=== PATIENT | male | born 1940 | race Two or more races ===

== ENCOUNTER 2024-07-30 19:33 | Inpatient (IN) | payer OTHER ==
[~2024-07-30] VITALS: Ht 182.9 cm; Wt 119.7 kg
--- NOTE | 2024-07-30 20:07 | ED.PDOC ---
History of Present Illness HPI Comments 83 y.o male presents to the ED for a chief complaint of generalized weakness associated with congestion and a cough that presented one day ago. Patient mentions he is unable to ambulate due to weakness, states his whole body gives out and needs assistance. Per family member, patient get weak about 1-2x a year when he is diagnosed with a viral illness. Usually, he requires EMS transport to the hospital. This time, they presented early to avoid EMS transfer. Patient denies any SOB, chest pain, fever, chills, dysuria. Denies any palliative provocative factors. Denies modifying factors. Denies radiation of symptoms. Denies pain. Time Seen by MD: 20:00 Reviewed Notes: Nurses Notes, Medications, Allergies Allergies: Coded Allergies: NO KNOWN ALLERGIES (Unverified , 07/30/24) Information Source: Patient, Relative Mode of Arrival: Wheelchair Severity: Moderate Timing: Days (1) Duration: Since onset Past Medical History PAST MEDICAL HISTORY: Denies Surgical History: Denies all surgeries Family History Family History: Reviewed,noncontributory to illness Social History Smoker: Non-Smoker Alcohol: Denies ETOH Use Drugs: Denies Drug Use Lives In: Home Constitutional: reports: weakness; denies: chills, diaphoresis, fatigue, fever, malaise, sweats, others EENTM: reports: nose congestion; denies: blurred vision, double vision, ear bleeding, ear discharge, ear drainage, ear pain, ear ringing, eye pain, eye redness, hearing loss, mouth pain, mouth swelling, nasal discharge, nose bleeding, nose pain, photophobia, tearing, throat pain, throat swelling, voice changes, others Respiratory: reports: cough; denies: hemoptysis, orthopnea, SOB at rest, shortness of breath, SOB with excertion, stridor, wheezing, others Cardiovascular: denies: chest pain, dizzy spells, diaphoresis, Dyspnea on exertion, edema, irregular heart beat, left arm pain, lightheadedness, palpitations, PND, syncope, others Gastrointestinal: denies: abdomen distended, abdominal pain, blood streaked bowels, constipated, diarrhea, dysphagia, difficulty swallowing, hematemesis, melena, nausea, poor appetite, poor fluid intake, rectal bleeding, rectal pain, vomiting, others Genitourinary: denies: burning, dysuria, flank pain, frequency, hematuria, incontinence, penile discharge, penile sore, pain, testicle pain, testicle swelling, urgency, others Neurological: denies: dizziness, fainting, headache, left sided numbness, left sided weakness, numbness, paresthesia, pre-existing deficit, right sided numbness, right sided weakness, seizure, speech problems, tingling, tremors, weakness, others Musculoskeletal: denies: back pain, gout, joint pain, joint swelling, muscle pain, muscle stiffness, neck pain, others Integumetry: denies: bruises, change in color, change in hair/nails, dryness, laceration, lesions, lumps, rash, wounds, others Allergic/Immunocompromised: denies: Difficulty Healing, Frequent Infections, Hives, Itching, others Hematologic/Lymphatic: denies: anemia, blood clots, easy bleeding, easy bruising, swollen glands, others Endocrine: denies: excessive hunger, excessive sweating, excessive thirst, excessive urination, flushing, intolerance to cold, intolerance to heat, unexplained weight gain, unexplained weight loss, others Psychiatric: denies: anxiety, bipolar disorder, depression, hopeless, panic disorder, schizophrenia, sleepless, suicidal, others All Other Systems: Reviewed and Negative Physical Exam General Appearance: No Apparent Distress, Normal HEENT: Normal ENT Inspection, Pharynx Normal, TMs Normal Neck: Full Range of Motion, Non-Tender, Normal, Normal Inspection Respiratory: Chest Non-Tender, Lungs Clear, No Accessory Muscle Use, No Respiratory Distress, Normal Breath Sounds Cardiovascular: No Edema, No JVD, No Murmur, No Gallop, Normal Peripheral Pulses, Regular Rate/Rhythm Breast Exam: Deferred Gastrointestinal: No Organomegaly, Non Tender, No Pulsatile Mass, Normal Bowel Sounds, Soft Genitalia: Deferred Pelvic: Deferred Rectal: Deferred Extremities: No calf tenderness, Normal capillary refill, Normal inspection, Normal range of motion, Non-tender, No pedal edema Musculoskeletal : Apperance: Normal Neurologic: Alert, surg tech II-XII nml as Tested, No Motor Deficits, Normal Affect, Normal Mood, No Sensory Deficits Cerebellar Function: Normal Reflexes: Normal Skin: Dry, Normal Color, Warm Lymphatic: No Adenopathy Was a procedure done? Was a procedure done?: No Differential Dx Considerations may include: Electrolyte imbalance, Dehydration, Viral Syndrome, URI, Bronchitis, Influenza X-Ray, Labs, Meds, VS Vital Signs Date Time Temp Pulse Resp B/P (MAP) Pulse Ox O2 Delivery O2 Flow Rate FiO2 07/30/24 20:09 91 07/30/24 19:33 99.9 95 16 154/85 (108) 94 Lab Test 07/30/24 20:17 Range/Units White Blood Count 12.2 H 4.4-10.8 10^3/uL Red Blood Count 5.18 4.5-5.90 10^6/uL Hemoglobin 16.5 13.5-17.5 g/dL Hematocrit 49.9 41.0-53.0 % Mean Corpuscular Volume 96.2 80.0-100.0 fL Mean Corpuscular Hemoglobin 31.9 28.0-32.0 pg Mean Corpuscular Hemoglobin Concent 33.1 32.0-36.0 g/dL Red Cell Distribution Width 13.5 11.8-14.3 % Platelet Count 130 L 140-450 10^3/uL Mean Platelet Volume 9.4 6.9-10.8 fL Neutrophils (%) (Auto) 91.5 H 37.0-80.0 % Lymphocytes (%) (Auto) 2.6 L 10.0-50.0 % Monocytes (%) (Auto) 5.5 0.0-12.0 % Eosinophils (%) (Auto) 0.1 0.0-7.0 % Basophils (%) (Auto) 0.3 0.0-2.0 % Neutrophils # (Auto) 11.1 H 1.6-8.6 10 ^3/uL Lymphocytes # (Auto) 0.3 L 0.4-5.4 10 ^3/uL Monocytes # (Auto) 0.7 0-1.3 10 ^3/uL Eosinophils # (Auto) 0 0-0.8 10 ^3/uL Basophils # (Auto) 0 0-0.2 10 ^3/uL Nucleated Red Blood Cells 0.0 % D-Dimer, Quantitative 0.39 0.0-0.49 mg/L FEU Sodium Level 141 136-145 mmol/L Potassium Level 4.2 3.5-5.1 mmol/L Chloride Level 110 H 98-107 mmol/L Carbon Dioxide Level 24 20-31 mmol/L Anion Gap 7 5-15 Blood Urea Nitrogen 25 H 9-23 mg/dL Creatinine 1.85 H 0.700-1.30 mg/dL Glomerular Filtration Rate Calc 35 >90 mL/min BUN/Creatinine Ratio 13.5 10.0-20.0 Serum Glucose 134 H 74-106 mg/dL Lactic Acid Level 1.5 0.4-2.0 mmol/L Calcium Level 10.1 8.7-10.4 mg/dL Total Bilirubin 1.0 0.2-1.0 mg/dL Aspartate Amino Transferase (AST) 17 13-40 U/L Alanine Aminotransferase (ALT) 18 7-40 U/L Alkaline Phosphatase 107 46-116 U/L B-Type Natriuretic Peptide 261.36 0-100 pg/mL Total Protein 6.8 5.7-8.2 g/dL Albumin 4.4 3.2-4.8 g/dL Time of 1ST Reevaluation: 20:06 Reevaluation 1ST: Unchanged Patient Education/Counseling: Diagnosis, Treatment, Prognosis Family Education/Counseling: Diagnosis, Treatment, Prognosis Departure 1 Departure Time of Disposition: 23:17 (Patient with worsening weakness. Labs are benign. We will admit patient for further workup) Impression: Primary Impression: Generalized weakness Disposition: ADMITTED INPATIENT Admit to: Med Surg Condition: Serious Critical Care Note Critical Care Time?: No Stability Stability form required: No I personally scribed for NELSON LEON MD ([email or web address]) on 07/30/24 at 20:07. Electronically submitted by Leeann Escamilla ([facility]). NELSON LEON MD Jul 30, 2024 20:07 DARLINE MCKEON MD Jul 30, 2024 23:17
[2024-07-30 20:29] LABS: Basophils # (auto) 0 10 ^3/uL (0-0.2); Basophils % (auto) 0.3 % (0.0-2.0); Eosinophils # (auto) 0 10 ^3/uL (0-0.8); Eosinophils % (auto) 0.1 % (0.0-7.0); Hematocrit 49.9 % (41.0-53.0); Hemoglobin 16.5 g/dL (13.5-17.5); Lymphocytes # (auto) 0.3 10 ^3/uL (0.4-5.4); Lymphocytes % (auto) 2.6 % (10.0-50.0); Mean Corpuscular Hemoglobin 31.9 pg (28.0-32.0); Mean Corpuscular Hgb Conc. 33.1 g/dL (32.0-36.0); Mean Corpuscular Volume 96.2 fL (80.0-100.0); Monocytes # (auto) 0.7 10 ^3/uL (0-1.3); Monocytes % (auto) 5.5 % (0.0-12.0); Neutrophils # (auto) 11.1 10 ^3/uL (1.6-8.6); Neutrophils % (auto) 91.5 % (37.0-80.0); Platelet Count (auto) 130 10^3/uL (140-450); Red Blood Cells 5.18 10^6/uL (4.5-5.90); Red Cell Distribution Width 13.5 % (11.8-14.3); White Blood Cell 12.2 10^3/uL (4.4-10.8)
--- NOTE | 2024-07-30 20:40 | DVH ---
CHEST RADIOGRAPH Indication: cough Technique: Single frontal view of the chest was obtained Comparison: None FINDINGS: Lines and Tubes: None Lungs: No focal consolidation. Pleura: No effusion. No pneumothorax. Cardiomediastinal contours: Unremarkable Bones: No acute osseous abnormality. IMPRESSION: 1. No acute cardiopulmonary disease. 2. No prior studies for comparison. HS:Y
[2024-07-30 20:42] LABS: Alanine Aminotransferase 18 U/L (7-40); Albumin 4.4 g/dL (3.2-4.8); Alkaline Phosphatase 107 U/L (46-116); Anion Gap 7 (5-15); Aspartate Aminotransferase 17 U/L (13-40); BUN/Creatinine Ratio 13.5 (10.0-20.0); Calcium 10.1 mg/dL (8.7-10.4); Carbon Dioxide 24 mmol/L (20-31); Potassium 4.2 mmol/L (3.5-5.1); Sodium 141 mmol/L (136-145)
[2024-07-30 20:43] LABS: Total Protein 6.8 g/dL (5.7-8.2)
[2024-07-30 20:54] LABS: Blood Urea Nitrogen 25 mg/dL (9-23); Chloride 110 mmol/L (98-107); Glucose 134 mg/dL (74-106)
[2024-07-30 23:38] LABS: Urine Bacteria None Seen /hpf (None Seen)
[2024-07-30] MEDS ORDERED: ALBUTEROL SULF 2.5 MG/0.5ML(0.5%) NEB SOLN NEB PRN (23:45)
[2024-07-30] MEDS ORDERED: ONDANSETRON HCL 4 MG/2 ML VIAL IV PRN (23:45)
[2024-07-30 23:47] LABS: Urine Blood Negative /uL (Negative); Urine Clarity Clear (Clear); Urine Color Light-Yellow (Yellow); Urine Protein, UAD 1+ (Negative); Urine Specific Gravity 1.018 (1.001-1.035); Urine Squamous Epithelial Cell None Seen /hpf (<5); Urine Urobilinogen Normal (Negative); Urine WBC <1 /hpf (0 - 3)
[2024-07-31] VITALS (14 sets, daily range): BP systolic 111–158; BP diastolic 52–86; PULSE 76–120; RESP 16–22; TEMP 97.4–101.3; O2SAT 92–99
--- NOTE | 2024-07-31 00:03 | DVHHP2 ---
History of Present Illness Reason for Visit: Generalized weakness History of Present Illness 83-year-old male presents for evaluation of generalized weakness. Patient's family brought him in for evaluation due to patient becoming progressively weaker over the past one day. Patient is unable to ambulate. He also complains of a nonproductive cough. No fever or chills. No unilateral weakness or slurred speech. No other acute complaints reported. Past Medical History None Past Surgical History None Family History Noncontributory Smoke: No ALCOHOL: none Drugs: None Lives: with Family Review of Systems Review of Systems Review of systems are currently negative addressed in HPI. Allergies: Coded Allergies: NO KNOWN ALLERGIES (Unverified , 07/30/24) Medications Current Medications Medications Dose Ordered Sig/Jaun Route Start Time Stop Time Status Last Admin Dose Admin Albuterol 2.5 mg Q6HPRN PRN NEB 07/30/24 23:45 Ondansetron HCl 4 mg Q4HP PRN IV 07/30/24 23:45 Acetaminophen 650 mg Q6HP PRN PO 07/30/24 23:45 Exam Vital Signs Vital Signs Date Time Temp Pulse Resp B/P (MAP) Pulse Ox O2 Delivery O2 Flow Rate FiO2 07/30/24 20:09 91 07/30/24 19:33 99.9 16 154/85 (108) 94 Exam Gen: 83-year-old male no apparent distress. Skin: Warm, dry, normal color and texture, no rash. HEENT: Normocephalic atraumatic, mucous membranes moist and pink. Neck: Cervical and supraclavicular nodes normal without enlargement, trachea is midline, thyroid gland is normal without masses. Pulmonary: Clear to auscultation and percussion bilaterally. Cardiac: Regular rate and rhythm. No murmur Abdomen: Soft, nontender, nondistended, bowel sounds present all 4 quadrants, no guarding, no rigidity, no organomegaly. Extremities: No cyanosis, clubbing, no edema Neuro: Cranial nerves II through XII grossly intact, normal affect and speech, no focal motor deficits. Labs/Xrays ORDERING PHYSICIAN: NELSON LEON MD PROCEDURE(s): CXR1 - CHEST XRAY 1 VIEW REASON: cough ORDER NUMBER(s): [id number], ACCESSION NUMBER(s): [id number] CHEST RADIOGRAPH Indication: cough Technique: Single frontal view of the chest was obtained Comparison: None FINDINGS: Lines and Tubes: None Lungs: No focal consolidation. Pleura: No effusion. No pneumothorax. Cardiomediastinal contours: Unremarkable Bones: No acute osseous abnormality. IMPRESSION: 1. No acute cardiopulmonary disease. 2. No prior studies for comparison. HS:Y ATED BY: REBECA SANDOVAL Jr., DO DICTATED DATE/TIME: 07/30/242037 SIGNED BY: REBECA SANDOVAL Jr., SIGNED DATE/TIME: 07/30/242037 Labs Test 07/30/24 21:32 07/30/24 20:17 Range/Units Urine Color Light-yellow Yellow Urine Clarity Clear Clear Urine pH 6.0 5.0-9.0 Urine Specific [place] 1.018 1.001-1.035 Urine Protein 1+ H Negative Urine Ketones Negative Negative Urine Blood Negative Negative /uL Urine Nitrite Negative Negative Urine Bilirubin Negative Negative Urine Urobilinogen Normal Negative mg/dL Urine Leukocyte Esterase Negative Negative /uL Urine RBC 1 0 - 3 /hpf Urine WBC <1 0 - 3 /hpf Urine Squamous Epithelial Cells None seen <5 /hpf Urine Bacteria None seen None Seen /hpf Urine Glucose Normal Normal mg/dL White Blood Count 12.2 H 4.4-10.8 10^3/uL Red Blood Count 5.18 4.5-5.90 10^6/uL Hemoglobin 16.5 13.5-17.5 g/dL Hematocrit 49.9 41.0-53.0 % Mean Corpuscular Volume 96.2 80.0-100.0 fL Mean Corpuscular Hemoglobin 31.9 28.0-32.0 pg Mean Corpuscular Hemoglobin Concent 33.1 32.0-36.0 g/dL Red Cell Distribution Width 13.5 11.8-14.3 % Platelet Count 130 L 140-450 10^3/uL Mean Platelet Volume 9.4 6.9-10.8 fL Neutrophils (%) (Auto) 91.5 H 37.0-80.0 % Lymphocytes (%) (Auto) 2.6 L 10.0-50.0 % Monocytes (%) (Auto) 5.5 0.0-12.0 % Eosinophils (%) (Auto) 0.1 0.0-7.0 % Basophils (%) (Auto) 0.3 0.0-2.0 % Neutrophils # (Auto) 11.1 H 1.6-8.6 10 ^3/uL Lymphocytes # (Auto) 0.3 L 0.4-5.4 10 ^3/uL Monocytes # (Auto) 0.7 0-1.3 10 ^3/uL Eosinophils # (Auto) 0 0-0.8 10 ^3/uL Basophils # (Auto) 0 0-0.2 10 ^3/uL Nucleated Red Blood Cells 0.0 % D-Dimer, Quantitative 0.39 0.0-0.49 mg/L FEU Sodium Level 141 136-145 mmol/L Potassium Level 4.2 3.5-5.1 mmol/L Chloride Level 110 H 98-107 mmol/L Carbon Dioxide Level 24 20-31 mmol/L Anion Gap 7 5-15 Blood Urea Nitrogen 25 H 9-23 mg/dL Creatinine 1.85 H 0.700-1.30 mg/dL Glomerular Filtration Rate Calc 35 >90 mL/min BUN/Creatinine Ratio 13.5 10.0-20.0 Serum Glucose 134 H 74-106 mg/dL Lactic Acid Level 1.5 0.4-2.0 mmol/L Calcium Level 10.1 8.7-10.4 mg/dL Total Bilirubin 1.0 0.2-1.0 mg/dL Aspartate Amino Transferase (AST) 17 13-40 U/L Alanine Aminotransferase (ALT) 18 7-40 U/L Alkaline Phosphatase 107 46-116 U/L B-Type Natriuretic Peptide 261.36 0-100 pg/mL Total Protein 6.8 5.7-8.2 g/dL Albumin 4.4 3.2-4.8 g/dL Assessment/Plan Assessment/Plan Assessment Generalized weakness Possible acute bronchitis Acute kidney injury Plan The patient to Med surge to the hospitalist Conference/influenza pending Med nebs Cough medicine Continue treatment per orders. Plan discussed with: Patient My Orders Orders - NADIYA DUMONT Procedure Category Date Status Time Covid19 Antigen [place] LAB 07/30/24 Logged 23:27 Rapid Influenza A&B LAB 07/30/24 Logged 23:27 Albuterol Medneb PHA 07/30/24 In Process (Ventolin Medneb) 23:45 Sodium Chloride 0.9% PHA 07/30/24 In Process 23:45 Lactic Acid W/ Reflex LAB 07/30/24 Logged Order 23:41 Basic Metabolic Panel LAB 07/31/24 Transmitted 04:00 Admit ADMIT 07/30/24 Transmitted 23:41 Ondansetron Hcl PHA 07/30/24 In Process (Zofran) 23:45 Cardiac DIET 07/31/24 Transmitted Diet-2gna,Lofat,Lochol Breakfast Condition: Stable DAMIAN 07/30/24 In Process 23:41 Acetaminophen Tablet PHA 07/30/24 In Process (Tylenol Tablet) 23:45 Bedrest With Bathroom DAMIAN 07/30/24 In Process Privileg 23:41 Date of Service: Jul 30, 2024 Billing Provider: NADIYA DUMONT Common Visit Codes: [id number] INP/OBS CARE (MOD) NADIYA DUMONT Jul 31, 2024 00:03
[2024-07-31] MEDS: SODIUM CHLORIDE 0.9% 500 ML IV ONE (00:41)
[2024-07-31] MEDS: guaiFENesin-DM 100/10mg/5ml SYR PO PRN (00:42)
[2024-07-31] MEDS: ACETAMINOPHEN 325 MG TAB PO PRN (00:42)
[2024-07-31 00:59] LABS: Rapid Influenza A Negative (Negative); Rapid Influenza B Negative (Negative)
[2024-07-31 02:03] LABS: COVID19 ANTIGEN SOFIA FIA POSITIVE (NEGATIVE)
[2024-07-31] MEDS ORDERED: APIX2.5T PO (02:50)
[2024-07-31] MEDS ORDERED: ATOR40TA52 PO (02:50)
[2024-07-31] MEDS ORDERED: AMIO200T13 PO (02:50)
[2024-07-31 05:42] LABS: Potassium 4.1 mmol/L (3.5-5.1); Sodium 141 mmol/L (136-145)
[2024-07-31 05:43] LABS: Anion Gap 6 (5-15); Carbon Dioxide 26 mmol/L (20-31)
[2024-07-31 05:44] LABS: Calcium 10.1 mg/dL (8.7-10.4)
[2024-07-31 05:48] LABS: BUN/Creatinine Ratio 11.6 (10.0-20.0); Blood Urea Nitrogen 23 mg/dL (9-23)
[2024-07-31 05:55] LABS: Chloride 109 mmol/L (98-107); Glucose 110 mg/dL (74-106)
--- NOTE | 2024-07-31 08:42 | ECG ---
[facility] Test Date: 2024-07-30 Test Time: 20:09:57 Pat Name: WILLIAM FRANCO Department: ED Room: 0231T Gender: M [employer] Operator: CHRISTOPH : 1940 Requested By: DARLINE MCKEON Order Number: [id number] Reading MD: Valentin Trujillo Measurements Intervals [place] Rate: 91 P: 68 [place]: 175 QRS: -52 QRSD: 151 T: 22 QT: 401 QTc: 494 Interpretive Statements Sinus rhythm RBBB and LAFB Electronically Signed On 08-03-2024 16:29:08 PST by Valentin Trujillo Please click the below link to view image of tracing.
[2024-07-31] MEDS ORDERED: ASPI-543 PO (10:13)
[2024-07-31] MEDS ORDERED: ZINC220C8 PO (10:13)
[2024-07-31] MEDS ORDERED: CHLO25TA2 PO (10:13)
[2024-07-31] MEDS ORDERED: ASCO500T11 PO (10:13)
[2024-07-31] MEDS ORDERED: CHOLPOW45 XX (10:13)
[2024-07-31] MEDS ORDERED: HYDR100T10 PO (10:13)
[2024-07-31 12:57] LABS: Erythrocyte Sedimentation Rate 6 mm/hr (0-20)
[2024-07-31] MEDS: SODIUM CHLORIDE 0.9% 1,000 ML IV SCH (13:00)
[2024-07-31] MEDS: DexAMETHasone SOD PHOS 10MG/1ML VIAL INJ IV SCH (13:05)
--- NOTE | 2024-07-31 13:34 | DVHPN2 ---
Subjective Patient reports generalized weakness and shortness of breath. Reviewed: Care Plan, H&P, Labs, Medications Changes from previous H/P or p: No Changes General: Per HPI Objective Vitals Vital Signs Date Time Temp Pulse Resp B/P (MAP) Pulse Ox O2 Delivery O2 Flow Rate FiO2 07/31/24 12:56 97.4 76 19 158/86 (110) 95 97.4 07/31/24 10:00 Nasal Cannula* 3 32 Intake/Output Intake and Output 07/31/24 07:00 Intake Total 500 ml Balance 500 ml Intake IV Total 500 ml General Appearance: Alert, Oriented X3, Cooperative, No acute distress HEENT: Atraumatic, PERRLA Lungs: Clear to auscultation, Normal air movement Cardiovascular: Normal S1, Normal S2 Abdomen: Normal bowel sounds Musculoskeletal: Normal sensory function, Normal motor function Psych/Mental Status: Mental status NL, Mood NL Medications Current Medications Medications Dose Ordered Sig/Janu Route Start Time Stop Time Status Last Admin Dose Admin Albuterol 2.5 mg Q6HPRN PRN NEB 07/30/24 23:45 Ondansetron HCl 4 mg Q4HP PRN IV 07/30/24 23:45 Acetaminophen 650 mg Q6HP PRN PO 07/30/24 23:45 07/31/24 07:08 650 MG Guaifenesin/ Dextromethorphan 10 ml Q4HP PRN PO 07/31/24 00:00 07/31/24 00:42 10 ML Sodium Chloride 1,000 ml @ 75 mls/hr [id number] IV 07/31/24 12:00 08/01/24 01:19 07/31/24 13:00 75 MLS/HR Dexamethasone Sodium Phosphate 6 mg DAILY IV 07/31/24 12:00 07/31/24 13:05 6 MG Azithromycin 250 ml @ 125 mls/hr DAILY IV 07/31/24 15:00 Ascorbic Acid 500 mg BID PO 07/31/24 22:00 Zinc Sulfate 220 mg DAILY PO 08/01/24 10:00 Cholecalciferol 2,000 unit DAILY PO 08/01/24 10:00 Apixaban 2.5 mg BID PO 07/31/24 22:00 Ipratropium [place] 0.5 mg Q6HWA NEB 07/31/24 18:00 Albuterol 2.5 mg Q6HWA NEB 07/31/24 18:00 Laboratory Results Laboratory Tests 07/30/24 20:17 07/31/24 05:20 Chemistry Test 07/30/24 20:17 07/31/24 05:20 Albumin 4.4 g/dL (3.2-4.8) Calcium Level 10.1 mg/dL (8.7-10.4) 10.1 mg/dL (8.7-10.4) Total Protein 6.8 g/dL (5.7-8.2) Coagulation Test 07/30/24 20:17 D-Dimer, Quantitative 0.39 mg/L FEU (0.0-0.49) Cardiac Markers Test 07/30/24 20:17 B-Type Natriuretic Peptide 261.36 pg/mL (0-100) LFT Test 07/30/24 20:17 Alanine Aminotransferase (ALT) 18 U/L (7-40) Alkaline Phosphatase 107 U/L (46-116) Aspartate Amino Transferase (AST) 17 U/L (13-40) Total Bilirubin 1.0 mg/dL (0.2-1.0) Urinalysis Test 07/30/24 21:32 Urine Color Light-yellow (Yellow) Urine Clarity Clear (Clear) Urine pH 6.0 (5.0-9.0) Urine Specific [place] 1.018 (1.001-1.035) Urine Protein 1+ (Negative) H Urine Ketones Negative (Negative) Urine Blood Negative /uL (Negative) Urine Nitrite Negative (Negative) Urine Bilirubin Negative (Negative) Urine Urobilinogen Normal mg/dL (Negative) Urine Leukocyte Esterase Negative /uL (Negative) Urine RBC 1 /hpf (0 - 3) Urine WBC <1 /hpf (0 - 3) Urine Squamous Epithelial Cells None seen /hpf (<5) Urine Bacteria None seen /hpf (None Seen) Urine Glucose Normal mg/dL (Normal) Labs and/or images reviewed: Labs reviewed by me, Image(s) reviewed by me Assessment/Plan Assessment/Plan Impression: -acute hypoxic respiratory failure -sepsis secondary to COVID-19 -COVID-19 with questionable viral pneumonia -primary hypertension -obesity -atrial fibrillation Plan: -O2 supplementation to keep saturation greater than 92% -restart Eliquis -Decadron 6 mg IV daily -bronchodilators -start vitamin-C, vitamin-D zinc -transferred to telemetry unit -check ESR, CRP, D-dimer -repeat chest x-ray in a.m. Total time spent with patient discussing and formulating plan of care: 35 minutes. This medical document was created using an electronic medical record system with [employer] dictation system. Although this document has been carefully reviewed, there may still be some phonetic and typographical errors. These areas are purely typographical due to imperfections of the software programs, and do not reflect any compromise in the patient's medical care. Plan discussed with: Patient, Other (RN) My Orders Orders - SURJIT HITCHCOCK NP Procedure Category Date Status Time Sodium Chloride 0.9% PHA 07/31/24 In Process 12:00 Dexamethasone PHA 07/31/24 In Process Injection (Decadron 12:00 Basic Metabolic Panel LAB 08/01/24 Verified 04:00 Complete Blood Count LAB 08/01/24 Verified 04:00 D-Dimer LAB 07/31/24 Logged 11:57 Ascorbic Acid Tablet PHA 07/31/24 In Process (Vitamin C Tablet) 22:00 Zinc Sulfate PHA 08/01/24 In Process 10:00 Cholecalciferol PHA 08/01/24 In Process Tablet (Vitamin D3 10:00 Apixaban (Eliquis) PHA 07/31/24 In Process 22:00 Azithromycin 500mg/ PHA 07/31/24 In Process 250ml (Zithromax 50 15:00 Ipratropium Medneb PHA 07/31/24 In Process (Atrovent Medneb) 18:00 Albuterol Medneb PHA 07/31/24 In Process (Ventolin Medneb) 18:00 Transfer Orders XFER 07/31/24 Transmitted 13:00 Chest Portable XY 08/01/24 Verified 04:00 Date of Service: Jul 31, 2024 Billing Provider: SURJIT HITCHCOCK NP Common Visit Codes: [id number] INP/OBS CARE(HIGH) SURJIT HITCHCOCK NP Jul 31, 2024 13:34
[2024-07-31] MEDS: AZITHROMYCIN 500MG/ 250ML 250 ML IV SCH (15:05)
[2024-07-31] MEDS: ALBUTEROL SULF 2.5 MG/0.5ML(0.5%) NEB SOLN NEB SCH (18:36)
[2024-07-31] MEDS: IPRATROPIUM BROM 0.5 MG/2.5ML INH SOL NEB SCH (18:36)
[2024-07-31] MEDS: ASCORBIC ACID 500 MG TAB PO SCH (21:41)
[2024-07-31] MEDS: APIXABAN 2.5 MG TAB PO SCH (21:41)
[2024-08-01] VITALS (16 sets, daily range): BP systolic 119–181; BP diastolic 68–95; PULSE 67–125; RESP 16–19; TEMP 97.6–98.6; O2SAT 94–100
[2024-08-01 05:58] LABS: Basophils # (auto) 0.1 10 ^3/uL (0-0.2); Basophils % (auto) 0.5 % (0.0-2.0); Eosinophils # (auto) 0 10 ^3/uL (0-0.8); Hematocrit 52.2 % (41.0-53.0); Hemoglobin 17.8 g/dL (13.5-17.5); Lymphocytes # (auto) 0.6 10 ^3/uL (0.4-5.4); Lymphocytes % (auto) 4.5 % (10.0-50.0); Mean Corpuscular Hemoglobin 32.9 pg (28.0-32.0); Mean Corpuscular Hgb Conc. 34.1 g/dL (32.0-36.0); Mean Corpuscular Volume 96.4 fL (80.0-100.0); Monocytes % (auto) 7.9 % (0.0-12.0); Neutrophils # (auto) 10.8 10 ^3/uL (1.6-8.6); Neutrophils % (auto) 87.1 % (37.0-80.0); Nucleated Red Blood Cells % 0.1 %; Platelet Count (auto) 124 10^3/uL (140-450); Red Blood Cells 5.41 10^6/uL (4.5-5.90); Red Cell Distribution Width 13.9 % (11.8-14.3); White Blood Cell 12.4 10^3/uL (4.4-10.8)
[2024-08-01 06:14] LABS: Potassium 4.2 mmol/L (3.5-5.1); Sodium 141 mmol/L (136-145)
[2024-08-01 06:15] LABS: Anion Gap 9 (5-15); Calcium 9.9 mg/dL (8.7-10.4); Carbon Dioxide 24 mmol/L (20-31)
[2024-08-01 06:21] LABS: Blood Urea Nitrogen 30 mg/dL (9-23); Chloride 108 mmol/L (98-107); Glucose 129 mg/dL (74-106)
--- NOTE | 2024-08-01 08:32 | DVH ---
EXAM: XY CHEST PORTABLE Indication: hypoxia, gege COVID-19 pneumonia Technique: Single frontal view of the chest was obtained Comparison: XY CHEST XRAY 1 VIEW on DOS: 07/30/24 FINDINGS: Lines and Tubes: Right internal jugular central venous catheter tip projects over the superior vena c jitendra. Cardiac pacemaker projects over left chest wall. Lungs: No focal consolidation. Pleura: No effusion. No pneumothorax. Cardiomediastinal contours: Unremarkable Bones: No acute osseous abnormality. IMPRESSION: No acute cardiopulmonary disease.
--- NOTE | 2024-08-01 09:13 | DVH ---
EXAM: XY CHEST PORTABLE Indication: pain Technique: Single frontal view of the chest was obtained Comparison: XY CHEST PORTABLE on DOS: 08/01/24, XY CHEST XRAY 1 VIEW on DOS: 07/30/24 FINDINGS: Lines and Tubes: None Lungs: No focal consolidation. Pleura: No effusion. No pneumothorax. Cardiomediastinal contours: Unremarkable Bones: No acute osseous abnormality. IMPRESSION: No acute cardiopulmonary disease.
[2024-08-01] MEDS: ZINC SULFATE 220mg CAP or TAB PO SCH (10:49)
[2024-08-01] MEDS: CHOLECALCIFEROL (VITD3) 1,000UNIT=25mCg TAB PO SCH (10:50)
--- NOTE | 2024-08-01 14:22 | DVHPN2 ---
Subjective Patient was more alert today. States that he was feeling better. Reviewed: Care Plan, H&P, Labs, Medications Changes from previous H/P or p: Changes General: Per HPI Objective Vitals Vital Signs Date Time Temp Pulse Resp B/P (MAP) Pulse Ox O2 Delivery O2 Flow Rate FiO2 08/01/24 11:20 121 16 98 08/01/24 11:14 Nasal Cannula* 3 32 08/01/24 09:00 97.6 125/81 (96) 97.6 Intake/Output Intake and Output 08/01/24 07:00 Intake Total 1175 ml Output Total 300 ml Balance 875 ml Intake Oral 550 ml IV Total 625 ml Output Urine Total 300 ml # Voids 4 General Appearance: Alert, Oriented X3, Cooperative, No acute distress HEENT: Atraumatic, PERRLA Lungs: Clear to auscultation, Normal air movement Cardiovascular: Normal S1, Normal S2 Abdomen: Normal bowel sounds Musculoskeletal: Normal sensory function, Normal motor function Psych/Mental Status: Mental status NL, Mood NL Medications Current Medications Medications Dose Ordered Sig/Jaun Route Start Time Stop Time Status Last Admin Dose Admin Albuterol 2.5 mg Q6HPRN PRN NEB 07/30/24 23:45 Ondansetron HCl 4 mg Q4HP PRN IV 07/30/24 23:45 Acetaminophen 650 mg Q6HP PRN PO 07/30/24 23:45 07/31/24 07:08 650 MG Guaifenesin/ Dextromethorphan 10 ml Q4HP PRN PO 07/31/24 00:00 07/31/24 00:42 10 ML Dexamethasone Sodium Phosphate 6 mg DAILY IV 07/31/24 12:00 08/01/24 10:49 6 MG Azithromycin 250 ml @ 125 mls/hr DAILY IV 07/31/24 15:00 08/01/24 10:00 125 MLS/HR Ascorbic Acid 500 mg BID PO 07/31/24 22:00 08/01/24 10:49 500 MG Zinc Sulfate 220 mg DAILY PO 08/01/24 10:00 08/01/24 10:49 220 MG Cholecalciferol 2,000 unit DAILY PO 08/01/24 10:00 08/01/24 10:50 2,000 UNIT Apixaban 2.5 mg BID PO 07/31/24 22:00 08/01/24 10:49 2.5 MG Ipratropium [place] 0.5 mg Q6HWA NEB 07/31/24 18:00 08/01/24 11:14 0.5 MG Albuterol 2.5 mg Q6HWA NEB 07/31/24 18:00 08/01/24 11:14 2.5 MG Amiodarone HCl 200 mg Q12HR PO 08/01/24 22:00 UNV Laboratory Results Laboratory Tests 08/01/24 05:04 Chemistry Test 08/01/24 05:04 Calcium Level 9.9 mg/dL (8.7-10.4) Urinalysis Test 07/30/24 21:32 Urine Color Light-yellow (Yellow) Urine Clarity Clear (Clear) Urine pH 6.0 (5.0-9.0) Urine Specific [place] 1.018 (1.001-1.035) Urine Protein 1+ (Negative) H Urine Ketones Negative (Negative) Urine Blood Negative /uL (Negative) Urine Nitrite Negative (Negative) Urine Bilirubin Negative (Negative) Urine Urobilinogen Normal mg/dL (Negative) Urine Leukocyte Esterase Negative /uL (Negative) Urine RBC 1 /hpf (0 - 3) Urine WBC <1 /hpf (0 - 3) Urine Squamous Epithelial Cells None seen /hpf (<5) Urine Bacteria None seen /hpf (None Seen) Urine Glucose Normal mg/dL (Normal) Labs and/or images reviewed: Labs reviewed by me, Image(s) reviewed by me Assessment/Plan Assessment/Plan Impression: -acute hypoxic respiratory failure -sepsis secondary to COVID-19 -COVID-19 with questionable viral pneumonia -primary hypertension -obesity -atrial fibrillation, periods of AFib with RVR Plan: Events: Patient with runs of AFib with RVR. Also noted nonsustained VT -IV magnesium -restart amiodarone 200 mg p.o. b.i.d. -O2 supplementation to keep saturation greater than 92% -restart Eliquis -Decadron 6 mg IV daily -bronchodilators -start vitamin-C, vitamin-D zinc -repeat labs in a.m. -reassess for discharge in a.m. Total time spent with patient discussing and formulating plan of care: 35 minutes. This medical document was created using an electronic medical record system with [employer] dictation system. Although this document has been carefully reviewed, there may still be some phonetic and typographical errors. These areas are purely typographical due to imperfections of the software programs, and do not reflect any compromise in the patient's medical care. Plan discussed with: Patient, Other (RN) My Orders Orders - SURJIT HITCHCOCK NP Procedure Category Date Status Time Chest Portable XY 08/01/24 Resulted 08:46 Amiodarone Tablet PHA 08/01/24 Logged (Cordarone Tablet) 22:00 Magnesium Sulfate PHA 08/01/24 Logged 1gm/100ml 14:30 Date of Service: Aug 01, 2024 Billing Provider: SURJIT HITCHCOCK NP Common Visit Codes: [id number] INP/OBS CARE(HIGH) SURJIT HITCHCOCK NP Aug 01, 2024 14:22
[2024-08-01] MEDS: MAGNESIUM SULFATE 1GM/100ML 100 ML IV ONE (17:37)
[2024-08-01] MEDS: AMIODARONE HCL 200 MG TAB PO SCH (20:58)
[2024-08-02] VITALS (11 sets, daily range): BP systolic 114–156; BP diastolic 55–77; PULSE 61–142; RESP 15–71; TEMP 97.4–97.8; O2SAT 96–100
[2024-08-02] MEDS ORDERED: DEX4T PO (10:37)
[2024-08-02] MEDS ORDERED: DOXY-286 PO (10:37)
--- NOTE | 2024-08-02 10:43 | DVHDS2 ---
Discharge Summary Date of Admission Jul 30, 2024 at 23:41 Date of Discharge: Aug 02, 2024 Admitting Diagnosis Generalized weakness Labs/Diagnostic Data: Laboratory Results Test 08/01/24 05:04 07/31/24 13:21 07/31/24 08:44 07/31/24 05:20 White Blood Count 12.4 10^3/uL (4.4-10.8) Red Blood Count 5.41 10^6/uL (4.5-5.90) Hemoglobin 17.8 g/dL (13.5-17.5) Hematocrit 52.2 % (41.0-53.0) Mean Corpuscular Volume 96.4 fL (80.0-100.0) Mean Corpuscular Hemoglobin 32.9 pg (28.0-32.0) Mean Corpuscular Hemoglobin Concent 34.1 g/dL (32.0-36.0) Red Cell Distribution Width 13.9 % (11.8-14.3) Platelet Count 124 10^3/uL (140-450) Mean Platelet Volume 9.8 fL (6.9-10.8) Neutrophils (%) (Auto) 87.1 % (37.0-80.0) Lymphocytes (%) (Auto) 4.5 % (10.0-50.0) Monocytes (%) (Auto) 7.9 % (0.0-12.0) Eosinophils (%) (Auto) 0.0 % (0.0-7.0) Basophils (%) (Auto) 0.5 % (0.0-2.0) Neutrophils # (Auto) 10.8 10 ^3/uL (1.6-8.6) Lymphocytes # (Auto) 0.6 10 ^3/uL (0.4-5.4) Monocytes # (Auto) 1.0 10 ^3/uL (0-1.3) Eosinophils # (Auto) 0 10 ^3/uL (0-0.8) Basophils # (Auto) 0.1 10 ^3/uL (0-0.2) Nucleated Red Blood Cells 0.1 % Sodium Level 141 mmol/L (136-145) Potassium Level 4.2 mmol/L (3.5-5.1) Chloride Level 108 mmol/L (98-107) Carbon Dioxide Level 24 mmol/L (20-31) Anion Gap 9 (5-15) Blood Urea Nitrogen 30 mg/dL (9-23) Creatinine 1.67 mg/dL (0.700-1.30) Glomerular Filtration Rate Calc 40 mL/min (>90) BUN/Creatinine Ratio 18.0 (10.0-20.0) Serum Glucose 129 mg/dL (74-106) Calcium Level 9.9 mg/dL (8.7-10.4) D-Dimer, Quantitative 0.54 mg/L FEU (0.0-0.49) POC Glucose 113 mg/dl (70-106) Erythrocyte Sedimentation Rate 6 mm/hr (0-20) C-Reactive Protein High Sensitivity 3.21 mg/dL (<1.0) Test 07/31/24 00:56 07/31/24 00:20 07/30/24 23:59 07/30/24 21:32 SARS-CoV-2 Antigen (Rapid) Positive (NEGATIVE) Influenza Type A Antigen Negative (Negative) Influenza Type B Antigen Negative (Negative) Lactic Acid Level 0.8 mmol/L (0.4-2.0) Urine Color Light-yellow (Yellow) Urine Clarity Clear (Clear) Urine pH 6.0 (5.0-9.0) Urine Specific [place] 1.018 (1.001-1.035) Urine Protein 1+ (Negative) Urine Ketones Negative (Negative) Urine Blood Negative /uL (Negative) Urine Nitrite Negative (Negative) Urine Bilirubin Negative (Negative) Urine Urobilinogen Normal mg/dL (Negative) Urine Leukocyte Esterase Negative /uL (Negative) Urine RBC 1 /hpf (0 - 3) Urine WBC <1 /hpf (0 - 3) Urine Squamous Epithelial Cells None seen /hpf (<5) Urine Bacteria None seen /hpf (None Seen) Urine Glucose Normal mg/dL (Normal) Test 07/30/24 20:17 Total Bilirubin 1.0 mg/dL (0.2-1.0) Aspartate Amino Transferase (AST) 17 U/L (13-40) Alanine Aminotransferase (ALT) 18 U/L (7-40) Alkaline Phosphatase 107 U/L (46-116) B-Type Natriuretic Peptide 261.36 pg/mL (0-100) Total Protein 6.8 g/dL (5.7-8.2) Albumin 4.4 g/dL (3.2-4.8) Other Laboratory Tests 1/21/25 05:04 Brief Hx & Hospital Course: History of Present Illness 83-year-old male presents for evaluation of generalized weakness. Patient's family brought him in for evaluation due to patient becoming progressively weaker over the past one day. Patient is unable to ambulate. He also complains of a nonproductive cough. No fever or chills. No unilateral weakness or slurred speech. No other acute complaints reported. Course of hospitalization: Patient was placed on O2 supplementation given his severe dyspnea and generalized weakness. Patient was found to be positive for COVID-19. Multiple chest x-rays were performed, with no noted infiltrates. O2 supplementation was weaned off. Patient was started on treatment for COVID-19 including Decadron, zinc, vitamin-C, vitamin-D. Patient was overall clinical status improved. He was continued on anticoagulation with Eliquis. While in the hospital he did have runs of atrial fibrillation as well as nonsustained VT, for which patient was placed back on p.o. amiodarone as well as given IV magnesium. Tachycardia and ectopy has subsided. Patient was agreeable to be discharged home. He will be continued on antibiotic therapy with doxycycline 100 mg p.o. b.i.d. x5 days, as well as continued use of steroids with Decadron 4 mg p.o. daily. He was instructed to continue all previous home medications and follow up with his PCP in 1-2 weeks. Physical examination General: Alert and Oriented x3. No acute distress. Well-nourished. Obese Eyes: EOMI. Anicteric. HENT: Moist mucous membranes. Lungs: Clear to auscultation bilaterally. No accessory muscle use. Cardiovascular: Regular rate and rhythm. No murmur. No JVD. Abdomen: Soft, non-tender and non-distended. No palpable masses. Extremities: No edema. Non-tender. Skin: No rashes or lesions. Warm. Neurologic: No focal neurological deficits. CN II-XII grossly intact, but not individually tested. Psychiatric: Cooperative. Appropriate mood and affect. Total time spent with patient discussing and formulating plan of care: 35 minutes. This medical document was created using an electronic medical record system with [employer] dictation system. Although this document has been carefully reviewed, there may still be some phonetic and typographical errors. These areas are purely typographical due to imperfections of the software programs, and do not reflect any compromise in the patient's medical care. Condition at Discharge: Guarded Final Diagnosis/Problems List Acute hypoxic respiratory failure secondary to COVID-19 Secondary Diagnosis: -acute hypoxic respiratory failure -sepsis secondary to COVID-19 -COVID-19 with questionable viral pneumonia -primary hypertension -obesity -atrial fibrillation, periods of AFib with RVR Discharge Disposition: Home Discharge Instruct/Medications Diet: Cardiac 2g Na,low cholest Activity: No Restrictions, As Tolerated Follow Up/Referral: Follow up with PCP in 1-2 weeks Medications: Decadron 4 mg p.o. daily x4 days Doxycycline 100 mg p.o. twice a day x5 days Continue all home medication 36 Discharge Statement: "Patient was advised to return to the ER or call 911 if any headaches, dizziness, shortness of breath, chest pain, abdominal pain, bleeding, fevers, or worsening of medical condition. Patient was counseled about treatment plan, medications, possible side effects, patientverbalized understanding. All questions were answered to the best of my ability. This discharge took greater then 30 minutes in planning, reviewing documentation, counseling the patient, and discussing with other team members." ASSESSMENT ASSESSMENT Assessment Acute hypoxic respiratory failure secondary to COVID-19 Date of Service: Aug 02, 2024 Billing Provider: SURJIT HITCHCOCK NP Common Visit Codes: 09570-ETA/OBS DISCH DAY >30min SURJIT HITCHCOCK NP Aug 02, 2024 10:43
== END 2024-08-02 17:06 | disposition home or self-care (01) | DRG 871 ==
LOC: ER 19:33 → OVERFLOW 23:41 → EAST 07-31 09:01 → TELE-EAST 07-31 13:12
PROVIDERS: ADMIT Nurse Practitioner Acute Care; ATTEND Nurse Practitioner Acute Care
DX: A41.89 Other specified sepsis (principal); J12.82 Pneumonia due to coronavirus disease 2019; J96.01 Acute respiratory failure with hypoxia; U07.1 COVID-19; N17.9 Acute kidney failure, unspecified; I48.91 Unspecified atrial fibrillation; E66.9 Obesity, unspecified; I10 Essential (primary) hypertension; Z79.01 Long term (current) use of anticoagulants; Z68.35 Body mass index [BMI] 35.0-35.9, adult; Z79.899 Other long term (current) drug therapy
CPT/HCPCS: 36415; 71045; 80048; 80053; 81001; 82962; 83605; 83880; 85025; 85379; 85652; 86141; 87426; 87804; 93005; 94640; G0378; J1100

== ENCOUNTER 2025-04-25 19:57 | Inpatient (IN) | payer OTHER ==
[~2025-04-25] VITALS: Ht 188 cm; Wt 122.0 kg
[~2025-04-25 19:57] MED LIST: AMIO200T13 PO; APIX2.5T PO; ASCO500T11 PO; ASPI-543 PO; ATOR40TA52 PO; CHLO25TA2 PO; CHOLPOW45 XX; DEX4T PO; DOXY-286 PO; HYDR100T10 PO; ZINC220C8 PO
--- NOTE | 2025-04-25 20:07 | ECG ---
[facility] Test Date: 2025-04-25 Test Time: 20:03:54 Pat Name: WILLIAM FRANCO Department: [facility] ED Patient ID: [facility]-[id number] Room: 0215T Gender: M Export Sales Assistant: felicia : 1940 Requested By: MARTA SHEPARD Order Number: [id number] Reading MD: Valentin Trujillo Measurements Intervals [employer] Rate: 87 P: 22 [place]: 169 QRS: -49 QRSD: 164 T: 130 QT: 448 QTc: 539 Interpretive Statements Sinus rhythm Multiple premature complexes, vent & supraven RBBB and LAFB LVH with secondary repolarization abnormality Prolonged QT interval Baseline wander in lead(s) V1 Electronically Signed On 04-28-2025 18:42:35 PDT by Valentin Trujilol Please click the below link to view image of tracing.
--- NOTE | 2025-04-25 20:10 | ED.PDOC ---
History of Present Illness HPI Comments 84 year old male PMHx a-fib presents to the ED with a chief compliant of generalized weakness onset today (04/25/25). Per EMS, patient was at home, was found on the restroom floor by , patient was not able to get up, 911 was called. also stated patient has been experiencing cough for the past day. P atient states he went to the restroom, sitting on toilet, tried to get up, was not able to get up, fell onto the ground sitting down, currently experiencing back and buttock pain. Patient is currently on Eliquis. Denies LOC, head injury, nausea, vomiting, diarrhea, dizziness, fever, chills, headache, abdominal pain, blurred vision. No other symptoms or modifying factors present at this time. Time Seen by MD: 20:05 Reviewed Notes: Medications, Allergies Allergies: Coded Allergies: NO KNOWN ALLERGIES (Unverified , 07/30/24) Home Meds Active Scripts Doxycycline Hyclate (DOXYCYCLINE HYCLATE) 100 Mg Tab, 1 TAB PO BID for 5 Days, #10 TAB Prov:SURJIT HITCHCOCK [employer] TECHNICAL OFFICER 08/02/24 Dexamethasone (Decadron) 4 Mg Tb, 4 TAB PO DAILY for 4 Days, #4 TAB Prov:SURJIT HITCHCOCK [employer] TECHNICAL OFFICER 08/02/24 Reported Medications Cholecalciferol (VITAMIN D3) Pow, 100 MG XX DAILY, POW 07/31/24 Zinc Sulfate (Zinc Sulfate) 220 Mg Cap, 50 MG PO DAILY for 30 Days, MG 07/31/24 Ascorbic Acid (VITAMIN C TABLET) 500 Mg Tb, 1 TAB PO DAILY, #30 TAB 3 Refills 07/31/24 Hydralazine Hcl (Hydralazine Hcl) 100 Mg Tab, 100 MG PO DAILY, TAB 07/31/24 Chlorthalidone (Chlorthalidone) 25 Mg Tab, 25 MG PO DAILY, TAB 07/31/24 Aspirin (Aspir-Low) 81 Mg Tab, 81 MG PO DAILY for 30 Days, MG 07/31/24 Amiodarone HCl (Amiodarone HCl) 200 Mg Tab, 1 TAB PO DAILY 07/31/24 Atorvastatin Calcium (ATORVASTATIN CALCIUM) 40 Mg Tab, 1 TAB PO DAILY 07/31/24 Apixaban Base (ELIQUIS) 2.5 Mg Tab, 1 TAB PO BID 07/31/24 Information Source: Patient, Emergency Med Personnel Mode of Arrival: EMS Severity: Moderate Timing: Minutes Duration: Since onset Prehospital treatment: None Past Medical History PAST MEDICAL HISTORY: AFIB, Cancer Surgical History: Denies all surgeries Family History Family History: Reviewed,noncontributory to illness Social History Smoker: Non-Smoker Alcohol: Denies ETOH Use Drugs: Denies Drug Use Lives In: Home Constitutional: reports: weakness; denies: chills, diaphoresis, fatigue, fever, malaise, sweats, others EENTM: denies: blurred vision, double vision, ear bleeding, ear discharge, ear drainage, ear pain, ear ringing, eye pain, eye redness, hearing loss, mouth pain, mouth swelling, nasal discharge, nose bleeding, nose congestion, nose pain, photophobia, tearing, throat pain, throat swelling, voice changes, others Respiratory: denies: cough, hemoptysis, orthopnea, SOB at rest, shortness of breath, SOB with excertion, stridor, wheezing, others Cardiovascular: denies: chest pain, dizzy spells, diaphoresis, Dyspnea on exertion, edema, irregular heart beat, left arm pain, lightheadedness, palpitations, PND, syncope, others Gastrointestinal: denies: abdomen distended, abdominal pain, blood streaked bowels, constipated, diarrhea, dysphagia, difficulty swallowing, hematemesis, melena, nausea, poor appetite, poor fluid intake, rectal bleeding, rectal pain, vomiting, others Genitourinary: denies: burning, dysuria, flank pain, frequency, hematuria, incontinence, penile discharge, penile sore, pain, testicle pain, testicle swelling, urgency, others Neurological: reports: weakness; denies: dizziness, fainting, headache, left sided numbness, left sided weakness, numbness, paresthesia, pre-existing deficit, right sided numbness, right sided weakness, seizure, speech problems, tingling, tremors, others Musculoskeletal: reports: back pain, others (buttock pain); denies: gout, joint pain, joint swelling, muscle pain, muscle stiffness, neck pain Integumetry: denies: bruises, change in color, change in hair/nails, dryness, laceration, lesions, lumps, rash, wounds, others Allergic/Immunocompromised: denies: Difficulty Healing, Frequent Infections, Hives, Itching, others Hematologic/Lymphatic: denies: anemia, blood clots, easy bleeding, easy bruising, swollen glands, others Endocrine: denies: excessive hunger, excessive sweating, excessive thirst, excessive urination, flushing, intolerance to cold, intolerance to heat, unexplained weight gain, unexplained weight loss, others Psychiatric: denies: anxiety, bipolar disorder, depression, hopeless, panic disorder, schizophrenia, sleepless, suicidal, others All Other Systems: Reviewed and Negative Physical Exam General Appearance: Normal HEENT: Normal ENT Inspection, Pharynx Normal, TMs Normal Neck: Full Range of Motion, Non-Tender, Normal, Normal Inspection Respiratory: Chest Non-Tender, Lungs Clear, No Accessory Muscle Use, No Respiratory Distress, Normal Breath Sounds Cardiovascular: No Edema, No JVD, No Murmur, No Gallop, Normal Peripheral Pulse s, Regular Rate/Rhythm Breast Exam: Deferred Gastrointestinal: No Organomegaly, Non Tender, No Pulsatile Mass, Normal Bowel Sounds, Soft Genitalia: Deferred Pelvic: Deferred Rectal: Deferred Extremities: No calf tenderness, Normal capillary refill, Normal inspection, Normal range of motion, Non-tender, No pedal edema Musculoskeletal : Apperance: Normal Neurologic: Alert, motor equipment sergeant II-XII nml as Tested, No Motor Deficits, Normal Affect, Normal Mood, No Sensory Deficits Cerebellar Function: Normal Reflexes: Normal Skin: Dry, Normal Color, Warm Lymphatic: No Adenopathy Was a procedure done? Was a procedure done?: No EKG EKG : Pulse Rate (adult): 87 Cardiac Rhythm: NSR Differential Dx Considerations may include: Differential diagnosis includes but not limited to: Coronary ischemia, sepsis, pneumonia, dehydration, electrolyte abnormality, and others X-Ray, Labs, Meds, VS Vital Signs Date Time Temp Pulse Resp B/P (MAP) Pulse Ox O2 Delivery O2 Flow Rate FiO2 04/25/25 21:30 99.5 99.5 04/25/25 21:25 85 10 94 Nasal Cannula* 2 28 04/25/25 20:24 100.5 85 10 118/55 (76) 94 100.5 04/25/25 20:03 87 04/25/25 20:00 98.8 92 20 159/68 94 98.8 Lab Test 04/25/25 22:07 04/25/25 20:27 Range/Units Troponin I High Sensitivity Pending 118 *H </=54 ng/L White Blood Count 24.0 H 4.4-10.8 10^3/uL Red Blood Count 5.03 4.5-5.90 10^6/uL Hemoglobin 15.7 13.5-17.5 g/dL Hematocrit 47.8 41.0-53.0 % Mean Corpuscular Volume 95.0 80.0-100.0 fL Mean Corpuscular Hemoglobin 31.3 28.0-32.0 pg Mean Corpuscular Hemoglobin Concent 33.0 32.0-36.0 g/dL Red Cell Distribution Width 13.7 11.8-14.3 % Platelet Count 123 L 140-450 10^3/uL Mean Platelet Volume 10.4 6.9-10.8 fL Neutrophils (%) (Auto) 88.8 H 37.0-80.0 % Lymphocytes (%) (Auto) 1.6 L 10.0-50.0 % Monocytes (%) (Auto) 8.9 0.0-12.0 % Eosinophils (%) (Auto) 0.1 0.0-7.0 % Basophils (%) (Auto) 0.6 0.0-2.0 % Neutrophils # (Auto) 21.3 H 1.6-8.6 10 ^3/uL Lymphocytes # (Auto) 0.4 0.4-5.4 10 ^3/uL Monocytes # (Auto) 2.1 H 0-1.3 10 ^3/uL Eosinophils # (Auto) 0 0-0.8 10 ^3/uL Basophils # (Auto) 0.1 0-0.2 10 ^3/uL Nucleated Red Blood Cells 0.0 % Prothrombin Time 11.6 9.3-11.8 sec Prothrombin Time INR 1.11 0.9-1.15 Activated Partial Thromboplast Time 29.3 24.5-34.5 SEC Sodium Level 140 136-145 mmol/L Potassium Level 3.9 3.5-5.1 mmol/L Chloride Level 106 98-107 mmol/L Carbon Dioxide Level 23 20-31 mmol/L Anion Gap 11 5-15 Blood Urea Nitrogen 18 9-23 mg/dL Creatinine 2.07 H 0.700-1.30 mg/dL Glomerular Filtration Rate Calc 31 >90 mL/min BUN/Creatinine Ratio 8.7 L 10.0-20.0 Serum Glucose 101 74-106 mg/dL Lactic Acid Level 1.7 0.4-2.0 mmol/L Calcium Level 9.5 8.7-10.4 mg/dL Magnesium Level 2.2 1.6-2.6 mg/dL Total Bilirubin 1.7 H 0.2-1.0 mg/dL Aspartate Amino Transferase (AST) 31 13-40 U/L Alanine Aminotransferase (ALT) 19 7-40 U/L Alkaline Phosphatase 100 46-116 U/L Total Protein 6.8 5.7-8.2 g/dL Albumin 4.2 3.2-4.8 g/dL Time of 1ST Reevaluation: 20:35 Reevaluation 1ST: Unchanged Patient Education/Counseling: Diagnosis, Treatment, Prognosis Family Education/Counseling: No Family Present SEPSIS Sepsis Screen Physician Orders Troponin-I Hs (04/26/25 00:00) Troponin-I Hs (04/26/25 03:00) Troponin-I Hs (04/26/25 06:00) Urinalysis (04/25/25 20:05) Blood Culture (04/25/25 20:05) Troponin-I Hs (04/25/25 23:05) Chest Xray 1 View (04/25/25 20:05) Pelvis Ap (04/25/25 20:05) Sodium Chloride 0.9% (04/25/25 22:30) Ceftriaxone 1gm/50ml (Rocephin) (04/25/25 22:30) Azithromycin 500mg/ 250ml (Zithromax 50 (04/25/25 22:30) Vital Signs Date Time Temp Pulse Resp B/P (MAP) Pulse Ox O2 Delivery O2 Flow Rate FiO2 04/25/25 21:30 99.5 99.5 04/25/25 21:25 85 10 94 Nasal Cannula* 2 28 04/25/25 20:24 100.5 85 10 118/55 (76) 94 100.5 04/25/25 20:03 87 04/25/25 20:00 98.8 92 20 159/68 94 98.8 Laboratory Tests Test 04/25/25 20:27 Lactic Acid Level 1.7 mmol/L (0.4-2.0) White Blood Count 24.0 10^3/uL (4.4-10.8) H Departure 1 Departure Time of Disposition: 22:25 Impression: Primary Impression: Generalized weakness Additional Impressions: Acute renal injury Pneumonia Pneumonitis Disposition: ADMITTED INPATIENT Admit to: Med Surg Condition: Guarded Discharged With: Self Comments 84-year-old male brought from home after he had collapsed in the bathroom and was not able to get up by himself. On lab review his white blood cell count is high at 24. He has acute renal injury with BUN and creatinine 18 and 2.07. Troponin is elevated at 118. Patient was given IV fluids and IV Rocephin and azithromycin antibiotics. His chest x-ray shows a right lower lobe pneumonia. Patient will need admission for supportive care and further workup. Critical Care Note Critical Care Time?: No Stability Stability form required: No Heart Score Heart Score: Heart Score Response (Comments) Value History Slightly Suspicious 0 EKG Normal 0 Age >65 2 Risk Factors 1 or 2 risk factors 1 Troponin 1-2 x's Normal limit 1 Total 4 I personally scribed for MARTA SHEPARD MD ([email or web address]) on 04/25/25 at 20:10. Electronically submitted by Trisha Bejarano ([email or web address]). I personally scribed for MARTA SHEPARD MD ([email or web address]) on 04/25/25 at 20:10. Electronically submitted by Trisha Bejarano ([email or web address]). MARTA SHEPARD MD Apr 25, 2025 20:10
--- NOTE | 2025-04-25 20:51 | DVH ---
CHEST RADIOGRAPH Indication: SOB Technique: Single frontal view of the chest was obtained Comparison: XY CHEST PORTABLE on DOS: 08/01/24, XY CHEST PORTABLE on DOS: 08/01/24, XY CHEST XRAY 1 VIE W on DOS: 07/30/24 FINDINGS: Lines and Tubes: None Lungs: No focal consolidation. Pleura: No effusion. No pneumothorax. Cardiomediastinal contours: Cardiomegaly Bones: No acute osseous abnormality. IMPRESSION: 1. Cardiomegaly. 2. Mildly prominent bronchovascular markings in the right base may be secondary to atelectasis correl ate clinical findings in the right lower lung rush increased rales and rhonchi.
--- NOTE | 2025-04-25 20:54 | DVH ---
CLINICAL INDICATION: fall pain TECHNIQUE: 1 radiographic views of the pelvis were obtained. Comparison: None FINDINGS/IMPRESSION: There are no fractures or dislocations. Mild arthritic changes are noted of both hips right slightly worse than left.
[2025-04-25 20:57] LABS: Hematocrit 47.8 % (41.0-53.0); Hemoglobin 15.7 g/dL (13.5-17.5); Mean Corpuscular Hemoglobin 31.3 pg (28.0-32.0); Mean Corpuscular Volume 95.0 fL (80.0-100.0); Nucleated Red Blood Cells % 0.0 %
[2025-04-25 21:09] LABS: INR 1.11 (0.9-1.15); Partial Thromboplastin Time 29.3 SEC (24.5-34.5); Prothrombin Time 11.6 sec (9.3-11.8)
[2025-04-25 21:14] LABS: Alanine Aminotransferase 19 U/L (7-40); Albumin 4.2 g/dL (3.2-4.8); Alkaline Phosphatase 100 U/L (46-116); Anion Gap 11 (5-15); BUN/Creatinine Ratio 8.7 (10.0-20.0); Blood Urea Nitrogen 18 mg/dL (9-23); Calcium 9.5 mg/dL (8.7-10.4); Carbon Dioxide 23 mmol/L (20-31); Chloride 106 mmol/L (98-107); Glucose 101 mg/dL (74-106); Magnesium 2.2 mg/dL (1.6-2.6); Potassium 3.9 mmol/L (3.5-5.1); Sodium 140 mmol/L (136-145); Total Protein 6.8 g/dL (5.7-8.2)
[2025-04-25 21:19] LABS: Bilirubin, Total 1.7 mg/dL (0.2-1.0)
[2025-04-25 21:25] VITALS: PULSE 85; RESP 10; O2SAT 94
[2025-04-25] MEDS: SODIUM CHLORIDE 0.9% 500 ML IV ONE (22:43)
[2025-04-25] MEDS: AZITHROMYCIN 500MG/ 250ML 250 ML IV ONE (22:44)
[2025-04-26] VITALS (18 sets, daily range): BP systolic 94–122; BP diastolic 52–79; PULSE 60–130; RESP 16–20; TEMP 98.2–98.9; O2SAT 96–100
[2025-04-26] MEDS ORDERED: NITROGLYCERIN 0.4 MG SL TAB SL PRN
[2025-04-26] MEDS ORDERED: MORPHINE SULFATE INJ 2 MG/ml SYRG IV PRN
[2025-04-26] MEDS ORDERED: ACETAMINOPHEN 325 MG TAB PO PRN (01:15)
[2025-04-26] MEDS ORDERED: ONDANSETRON HCL 4 MG/2 ML VIAL IV PRN (01:15)
[2025-04-26] MEDS ORDERED: ALBUTEROL SULF 2.5 MG/0.5ML(0.5%) NEB SOLN NEB PRN (01:15)
[2025-04-26] MEDS: FUROSEMIDE 40 MG/4 ML VIAL IV ONE (01:34)
[2025-04-26] MEDS: ALBUTEROL SULF 2.5 MG/0.5ML(0.5%) NEB SOLN NEB PRN (02:44)
[2025-04-26 03:14] LABS: Chloride 105 mmol/L (98-107); Sodium 138 mmol/L (136-145)
[2025-04-26 03:15] LABS: Anion Gap 8 (5-15); Calcium 8.8 mg/dL (8.7-10.4); Carbon Dioxide 25 mmol/L (20-31)
[2025-04-26 03:20] LABS: BUN/Creatinine Ratio 10.3 (10.0-20.0); Blood Urea Nitrogen 20 mg/dL (9-23)
[2025-04-26 03:25] LABS: Glucose 121 mg/dL (74-106); Potassium 3.3 mmol/L (3.5-5.1)
--- NOTE | 2025-04-26 03:54 | DVHHP2 ---
History of Present Illness Reason for Visit: Generalized weakness History of Present Illness 84-year-old male presents for evaluation of generalized weakness. Patient reports having a near syncopal episode today while he tried to get up from the toilet. He reports experiencing generalized weakness over the past three days. He complains of shortness for breath and having a nonproductive cough. Denies chest pain. Past Medical History Cancer, atrial fibrillation, hypertension Past Surgical History Denies Family History Noncontributory Smoke: No ALCOHOL: none Drugs: None Lives: Alone Review of Systems Review of Systems Review of systems are currently negative otherwise addressed in HPI. Allergies: Coded Allergies: NO KNOWN ALLERGIES (Unverified , 07/30/24) Medications Current Medications Medications Dose Ordered Sig/Jaun Route Start Time Stop Time Status Last Admin Dose Admin Nitroglycerin 0.4 mg Q5MINP PRN SL 04/26/25 00:00 Morphine Sulfate 2 mg Q30M PRN IV 04/26/25 00:00 Furosemide 20 mg DAILY IV 04/26/25 10:00 Aspirin 162 mg DAILY PO 04/26/25 10:00 Atorvastatin Calcium 40 mg HS PO 04/26/25 22:00 Hydralazine HCl 100 mg DAILY PO 04/26/25 10:00 Amiodarone HCl 200 mg DAILY PO 04/26/25 10:00 Apixaban 2.5 mg BID PO 04/26/25 10:00 Ceftriaxone Sodium 50 ml @ 100 mls/hr DAILY@09 IV 04/26/25 09:00 Ondansetron HCl 4 mg Q4HP PRN IV 04/26/25 01:15 Acetaminophen 650 mg Q6HP PRN PO 04/26/25 01:15 Albuterol 2.5 mg Q6HPRN PRN NEB 04/26/25 01:15 04/26/25 02:44 2.5 MG Exam Vital Signs Vital Signs Date Time Temp Pulse Resp B/P (MAP) Pulse Ox O2 Delivery O2 Flow Rate FiO2 04/26/25 03:00 98.9 117 18 117/72 96 2.0 28 98.9 04/26/25 02:44 Nasal Cannula* Exam Gen: 84-year-old male in mild distress, obese Skin: Warm, dry, normal color and texture, no rash. HEENT: Normocephalic atraumatic, mucous membranes moist and pink. Neck: Cervical and supraclavicular nodes normal without enlargement, trachea is midline, thyroid gland is normal without masses. Pulmonary: Clear to auscultation and percussion bilaterally. Cardiac: Regular rate and rhythm. No murmur Abdomen: Soft, nontender, nondistended, bowel sounds present all 4 quadrants, no guarding, no rigidity, no organomegaly. Extremities: No cyanosis, clubbing, no edema Neuro: Cranial nerves II through XII grossly intact, normal affect and speech, no focal motor deficits. Labs/Xrays ORDERING PHYSICIAN: MARTA SHEPARD MD PROCEDURE(s): CXR1 - CHEST XRAY 1 VIEW REASON: SOB ORDER NUMBER(s): [id number], ACCESSION NUMBER(s): [id number] CHEST RADIOGRAPH Indication: SOB Technique: Single frontal view of the chest was obtained Comparison: XY CHEST PORTABLE on DOS: 08/01/24, XY CHEST PORTABLE on DOS: 08/01/24, XY CHEST XRAY 1 VIEW on DOS: 07/30/24 FINDINGS: Lines and Tubes: None Lungs: No focal consolidation. Pleura: No effusion. No pneumothorax. Cardiomediastinal contours: Cardiomegaly Bones: No acute osseous abnormality. IMPRESSION: 1. Cardiomegaly. 2. Mildly prominent bronchovascular markings in the right base may be secondary to atelectasis correlate clinical findings in the right lower lung rush increased rales and rhonchi. Labs Test 04/26/25 02:48 04/25/25 20:27 Range/Units Sodium Level 138 136-145 mmol/L Potassium Level 3.3 L 3.5-5.1 mmol/L Chloride Level 105 98-107 mmol/L Carbon Dioxide Level 25 20-31 mmol/L Anion Gap 8 5-15 Blood Urea Nitrogen 20 9-23 mg/dL Creatinine 1.95 H 0.700-1.30 mg/dL Glomerular Filtration Rate Calc 33 >90 mL/min BUN/Creatinine Ratio 10.3 10.0-20.0 Serum Glucose 121 H 74-106 mg/dL Calcium Level 8.8 8.7-10.4 mg/dL Troponin I High Sensitivity 136 *H </=54 ng/L White Blood Count 24.0 H 4.4-10.8 10^3/uL Red Blood Count 5.03 4.5-5.90 10^6/uL Hemoglobin 15.7 13.5-17.5 g/dL Hematocrit 47.8 41.0-53.0 % Mean Corpuscular Volume 95.0 80.0-100.0 fL Mean Corpuscular Hemoglobin 31.3 28.0-32.0 pg Mean Corpuscular Hemoglobin Concent 33.0 32.0-36.0 g/dL Red Cell Distribution Width 13.7 11.8-14.3 % Platelet Count 123 L 140-450 10^3/uL Mean Platelet Volume 10.4 6.9-10.8 fL Neutrophils (%) (Auto) 88.8 H 37.0-80.0 % Lymphocytes (%) (Auto) 1.6 L 10.0-50.0 % Monocytes (%) (Auto) 8.9 0.0-12.0 % Eosinophils (%) (Auto) 0.1 0.0-7.0 % Basophils (%) (Auto) 0.6 0.0-2.0 % Neutrophils # (Auto) 21.3 H 1.6-8.6 10 ^3/uL Lymphocytes # (Auto) 0.4 0.4-5.4 10 ^3/uL Monocytes # (Auto) 2.1 H 0-1.3 10 ^3/uL Eosinophils # (Auto) 0 0-0.8 10 ^3/uL Basophils # (Auto) 0.1 0-0.2 10 ^3/uL Nucleated Red Blood Cells 0.0 % Prothrombin Time 11.6 9.3-11.8 sec Prothrombin Time INR 1.11 0.9-1.15 Activated Partial Thromboplast Time 29.3 24.5-34.5 SEC Lactic Acid Level 1.7 0.4-2.0 mmol/L Magnesium Level 2.2 1.6-2.6 mg/dL Total Bilirubin 1.7 H 0.2-1.0 mg/dL Aspartate Amino Transferase (AST) 31 13-40 U/L Alanine Aminotransferase (ALT) 19 7-40 U/L Alkaline Phosphatase 100 46-116 U/L B-Type Natriuretic Peptide 455.98 0-100 pg/mL Total Protein 6.8 5.7-8.2 g/dL Albumin 4.2 3.2-4.8 g/dL SEPSIS Sepsis Screen Date sepsis recognized/suspect: Apr 25, 2025 Time Sepsis recognized/suspect: 2127 Recent Procedure: No On Antibiotic Therapy: No Respiratory Rate >20: No Heart Rate >90: No Temp<36 C (96.8 F) or >38.3 C: Yes SBP <90 or MAP <65 mmHG: No New Acute Mental Status Change: No Is the patient on CPAP, BIPAP,: No Physician Orders Troponin-I Hs (04/26/25 06:00) Urinalysis (04/25/25 20:05) Blood Culture (04/25/25 20:05) Chest Xray 1 View (04/25/25 20:05) Pelvis Ap (04/25/25 20:05) Admit (04/26/25 00:00) Nitroglycerin Sublingual (Ntrostat Subli (04/26/25 00:00) Morphine Sulfate Injection (04/26/25 00:00) Stat Ekg For Chest Pain (04/26/25 00:00) Notify Md Of Changes From Base (04/26/25 00:00) Rn Medicare For 24 Hours (04/26/25 00:00) Emergency Dysrhythmia Protocol (04/26/25 00:00) Rhythm Strips Once Every Shift (04/26/25 00:00) Oxygen By Nasal Cannula (04/26/25 00:00) Furosemide Injection (Lasix Injection) (04/26/25 10:00) Aspirin Tablet (04/26/25 10:00) Atorvastatin (Lipitor) (04/26/25 22:00) Hydralazine Hcl Tablet (Apresoline Table (04/26/25 10:00) Amiodarone Tablet (Cordarone Tablet) (04/26/25 10:00) Apixaban (Eliquis) (04/26/25 10:00) Ceftriaxone 1gm/50ml (Rocephin) (04/26/25 09:00) * Cardiology Consult (04/26/25 01:12) Renal Standard(2gna,3gk,Lopho) (04/26/25 Breakfast) Ondansetron Hcl (Zofran) (04/26/25 01:15) Cardiac Diet-2gna,Lofat,Lochol (04/26/25 Breakfast) Echo 2d Mode Cardiac Dop (04/26/25 01:12) Condition: Fair (04/26/25 01:12) Acetaminophen Tablet (Tylenol Tablet) (04/26/25 01:15) Bedrest With Bathroom Privileg (04/26/25 01:12) Albuterol Medneb (Ventolin Medneb) (04/26/25 01:15) Vital Signs Date Time Temp Pulse Resp B/P (MAP) Pulse Ox O2 Delivery O2 Flow Rate FiO2 04/26/25 03:00 98.9 117 18 117/72 96 2.0 28 98.9 04/26/25 02:50 117 18 98 04/26/25 02:44 96 Nasal Cannula* 2 28 04/26/25 02:44 121 18 96 04/26/25 02:44 96 Nasal Cannula 2.0 04/26/25 02:40 124 18 96 Nasal Cannula* 2 28 04/26/25 01:34 117/72 04/26/25 00:06 98.9 120 20 114/77 (89) 95 98.9 04/25/25 22:11 119 20 124/84 (97) 95 04/25/25 21:30 99.5 99.5 04/25/25 21:25 85 10 94 Nasal Cannula* 2 28 04/25/25 20:24 100.5 85 10 118/55 (76) 94 100.5 04/25/25 20:03 87 04/25/25 20:00 98.8 92 20 159/68 94 98.8 Laboratory Tests Test 04/25/25 20:27 Lactic Acid Level 1.7 mmol/L (0.4-2.0) White Blood Count 24.0 10^3/uL (4.4-10.8) H Medications Medications Dose Ordered Sig/Jaun Route Start Time Stop Time Status Last Admin Dose Admin Albuterol 2.5 mg Q6HPRN PRN NEB 04/26/25 01:15 04/26/25 02:44 2.5 MG Aspirin 162 mg ONCE ONCE PO 04/25/25 22:30 04/25/25 22:31 DC 04/25/25 22:48 162 MG Azithromycin 250 ml @ 125 mls/hr ONCE ONCE IV 04/25/25 22:30 04/26/25 00:29 DC 04/25/25 22:44 125 MLS/HR Ceftriaxone Sodium 50 ml @ 100 mls/hr ONCE ONCE IV 04/25/25 22:30 04/25/25 22:59 DC 04/25/25 22:44 100 MLS/HR Furosemide 40 mg ONCE ONCE IV 04/26/25 01:15 04/26/25 01:25 DC 04/26/25 01:34 40 MG Sodium Chloride 500 ml @ 500 mls/hr Q1H ONCE IV 04/25/25 22:30 04/25/25 23:29 DC 04/25/25 22:43 500 MLS/HR Assessment/Plan Assessment/Plan Assessment Community-acquired pneumonia Possible heart failure Acute kidney injury Hypertension Plan Admit the patient to telemetry to the hospitalist Rocephin/azithromycin Med nebs IV Lasix Cardiology consult Resume home medications Continue treatment per orders. Plan discussed with: Patient My Orders Orders - NADIYA DUMONT AGACNP Procedure Category Date Status Time Admit ADMIT 04/26/25 Transmitted 00:00 Nitroglycerin PHA 04/26/25 In Process Sublingual (Ntrostat 00:00 Morphine Sulfate PHA 04/26/25 In Process Injection 00:00 Stat Ekg For Chest DAMIAN 04/26/25 In Process Pain 00:00 Notify Of Changes [facility] 04/26/25 In Process From Base 00:00 Rn Medicare For [facility] 04/26/25 In Process 24 Hours 00:00 Emergency Dysrhythmia DAMIAN 04/26/25 In Process Protocol 00:00 Rhythm Strips Once DAMIAN 04/26/25 In Process Every Shift 00:00 Oxygen By Nasal RT 04/26/25 Transmitted Cannula 00:00 Furosemide Injection PHA 04/26/25 In Process (Lasix Injection) 10:00 Aspirin Tablet PHA 04/26/25 In Process 10:00 Atorvastatin (Lipitor) PHA 04/26/25 In Process 22:00 Hydralazine Hcl PHA 04/26/25 In Process Tablet (Apresoline 10:00 Amiodarone Tablet PHA 04/26/25 In Process (Cordarone Tablet) 10:00 Apixaban (Eliquis) PHA 04/26/25 In Process 10:00 Ceftriaxone 1gm/50ml PHA 04/26/25 In Process (Rocephin) 09:00 * Cardiology Consult CONS 04/26/25 Transmitted 01:12 Renal DIET 04/26/25 Transmitted Standard(2gna,3gk,Lopho) Breakfast Ondansetron Hcl PHA 04/26/25 In Process (Zofran) 01:15 Cardiac DIET 04/26/25 Transmitted Diet-2gna,Lofat,Lochol Breakfast Echo 2d Mode Cardiac US 04/26/25 Logged DOP 01:12 Condition: Fair DAMIAN 04/26/25 In Process 01:12 Acetaminophen Tablet PHA 04/26/25 In Process (Tylenol Tablet) 01:15 Bedrest With Bathroom DAMIAN 04/26/25 In Process Privileg 01:12 Albuterol Medneb PHA 04/26/25 In Process (Ventolin Medneb) 01:15 Date of Service: Apr 25, 2025 Billing Provider: NADIYA DUMONT Common Visit Codes: [id number] INP/OBS CARE (HIGH) NADIYA DUMONT Apr 26, 2025 03:54
[2025-04-26] MEDS: AMIODARONE HCL 200 MG TAB PO SCH (08:53)
[2025-04-26] MEDS: APIXABAN 2.5 MG TAB PO SCH (08:53)
[2025-04-26] MEDS: FUROSEMIDE 20 MG/2 ML VIAL IV SCH ×2 (08:54→10:00)
--- NOTE | 2025-04-26 09:09 | DVHINCON2 ---
Date Seen: Apr 26, 2025 Referring Physician NUNO Downing Reason for Consultation CHF History of Present Illness This is a an 84-year-old man who presented to the emergency room via EMS with a chief complaint of generalized weakness since . The patient reports he was getting out of the toilet when he slipped and fell on the floor. Denies LOC, head trauma, dizziness, or visual disturbances. The patient endorses other symptoms including generalized weakness and a productive cough. Denies chest pain, palpitations, or SOB. He underwent a 12 lead electrocardiogram revealing a sinus rhythm with PVCs and an associated RBBB, LAFB, and QTC at 539 ms. Troponin levels are trending up with latest at 167 ng/L. Denies following up in the outpatient setting with the primary stake setter. Significant medical history includes paroxysmal atrial fibrillation on Eliquis/amiodarone therapy, ?renal cancer, hypertension, cerebrovascular accident, chronic kidney disease stage IIIB, benign prostatic hyperplasia, and obesity. Past Medical History Past medical history reviewed. No other significant than mentioned above. Past Surgical History Past Surgical history reviewed. No other significant than mentioned above. Family History: FH: breast cancer G8 MOTHER Family History Family history reviewed. Social History Denies the use of illicit drugs, alcohol, or tobacco use. Allergies: Coded Allergies: NO KNOWN ALLERGIES (Unverified , 07/30/24) Home Meds Active Scripts Doxycycline Hyclate (DOXYCYCLINE HYCLATE) 100 Mg Tab, 1 TAB PO BID for 5 Days, #10 TAB Prov:[facility] 08/02/24 Dexamethasone (Decadron) 4 Mg Tb, 4 TAB PO DAILY for 4 Days, #4 TAB Prov:[facility] 08/02/24 Reported Medications Cholecalciferol (VITAMIN D3) Pow, 100 MG XX DAILY, POW 07/31/24 Zinc Sulfate (Zinc Sulfate) 220 Mg Cap, 50 MG PO DAILY for 30 Days, MG 07/31/24 Ascorbic Acid (VITAMIN C TABLET) 500 Mg Tb, 1 TAB PO DAILY, #30 TAB 3 Refills 07/31/24 Hydralazine Hcl (Hydralazine Hcl) 100 Mg Tab, 100 MG PO DAILY, TAB 07/31/24 Chlorthalidone (Chlorthalidone) 25 Mg Tab, 25 MG PO DAILY, TAB 07/31/24 Aspirin (Aspir-Low) 81 Mg Tab, 81 MG PO DAILY for 30 Days, MG 07/31/24 Amiodarone HCl (Amiodarone HCl) 200 Mg Tab, 1 TAB PO DAILY 07/31/24 Atorvastatin Calcium (ATORVASTATIN CALCIUM) 40 Mg Tab, 1 TAB PO DAILY 07/31/24 Apixaban Base (ELIQUIS) 2.5 Mg Tab, 1 TAB PO BID 07/31/24 Home Meds Home medications reviewed. Current Medications Current Medications Medications (Trade) Dose Ordered Sig/Jaun Route PRN Reason Start Time Stop Time Status Last Admin Nitroglycerin (Ntrostat Sublingual) 0.4 mg Q5MINP PRN SL FOR CHEST PAIN 04/26/25 00:00 Morphine Sulfate 2 mg Q30M PRN IV FOR CHEST PAIN 04/26/25 00:00 Furosemide (Lasix Injection) 20 mg DAILY IV 04/26/25 10:00 Aspirin 162 mg DAILY PO 04/26/25 10:00 Atorvastatin Calcium (Lipitor) 40 mg HS PO 04/26/25 22:00 Hydralazine HCl (Apresoline Tablet) 100 mg DAILY PO 04/26/25 10:00 Amiodarone HCl (Cordarone Tablet) 200 mg DAILY PO 04/26/25 10:00 Apixaban (Eliquis) 2.5 mg BID PO 04/26/25 10:00 Ceftriaxone Sodium 50 ml @ 100 mls/hr DAILY@09 IV 04/26/25 09:00 Albuterol (Ventolin Medneb) 2.5 mg Q6HPRN PRN NEB SHORTNESS OF BREATH 04/26/25 01:15 04/26/25 01:25 DC Ondansetron HCl (Zofran) 4 mg Q4HP PRN IV NAUSEA / VOMITING 04/26/25 01:15 Acetaminophen (Tylenol Tablet) 650 mg Q6HP PRN PO PAIN SCALE 1-3 OR TEMP>100.4 04/26/25 01:15 Albuterol (Ventolin Medneb) 2.5 mg Q6HPRN PRN NEB SHORTNESS OF BREATH 04/26/25 01:15 04/26/25 02:44 Review of Systems Constitutional: Generalized weakness Ears, Nose, & Throat: No symptom reported Eyes: No symptom reported Neurological: No symptoms reported Pulmonary/Respiratory: Productive Cough Cardiovascular: No symptom reported Gastrointestinal: No symptom reported Genitourinary: No symptom reported Musculoskeletal: No symptom reported Skin: No symptom reported Psychiatric: No symptom reported Endocrine: No symptom reported Hemotologic/Lymphatic: No symptom reported Vital Signs Vital Signs Date Time Temp Pulse Resp B/P (MAP) Pulse Ox O2 Delivery O2 Flow Rate FiO2 04/26/25 05:00 98.2 116 18 114/69 (84) 96 98.2 04/26/25 03:00 2.0 28 04/26/25 02:44 Nasal Cannula* Physical Exam General Appearance: Cooperative. Elder. Obese. Mild acute respiratory distress Head Exam: Normal inspection Neck Exam: Normal inspection. Non-tender. Normal alignment Pulmonary/Respiratory: Chest non-tender. Adventitious bilateral breath sounds Cardiovascular/Chest: Regular rate and rhythm. S1, S2. NSR with PVCs, RBBB, LAFB, prolonged QTC. No murmurs. No JVD. Peripheral Pulses: 2+ Radial (R). 2+ Radial (L). 2+ Pedal (R). 2+ Pedal (L) Abdominal Exam: Normal bowel sounds. Soft. Ankle Exam: Negative ankle edema Lower extremities: Negative lower extremity edema Neuro/Mental Status: A&O x3. Coherent but poor historian Thoughts/Psych: Normal thought pattern. Appropriate mood and affect. Good judgement and insight Appearance: Mild acute respiratory distress Skin Exam: Normal inspection. Normal color. Warm. Dry Labs/Diagnostic Data Labs Test 04/26/25 05:28 04/26/25 02:48 04/25/25 20:27 Range/Units Troponin I High Sensitivity 167 *H </=54 ng/L Sodium Level 138 136-145 mmol/L Potassium Level 3.3 L 3.5-5.1 mmol/L Chloride Level 105 98-107 mmol/L Carbon Dioxide Level 25 20-31 mmol/L Anion Gap 8 5-15 Blood Urea Nitrogen 20 9-23 mg/dL Creatinine 1.95 H 0.700-1.30 mg/dL Glomerular Filtration Rate Calc 33 >90 mL/min BUN/Creatinine Ratio 10.3 10.0-20.0 Serum Glucose 121 H 74-106 mg/dL Calcium Level 8.8 8.7-10.4 mg/dL White Blood Count 24.0 H 4.4-10.8 10^3/uL Red Blood Count 5.03 4.5-5.90 10^6/uL Hemoglobin 15.7 13.5-17.5 g/dL Hematocrit 47.8 41.0-53.0 % Mean Corpuscular Volume 95.0 80.0-100.0 fL Mean Corpuscular Hemoglobin 31.3 28.0-32.0 pg Mean Corpuscular Hemoglobin Concent 33.0 32.0-36.0 g/dL Red Cell Distribution Width 13.7 11.8-14.3 % Platelet Count 123 L 140-450 10^3/uL Mean Platelet Volume 10.4 6.9-10.8 fL Neutrophils (%) (Auto) 88.8 H 37.0-80.0 % Lymphocytes (%) (Auto) 1.6 L 10.0-50.0 % Monocytes (%) (Auto) 8.9 0.0-12.0 % Eosinophils (%) (Auto) 0.1 0.0-7.0 % Basophils (%) (Auto) 0.6 0.0-2.0 % Neutrophils # (Auto) 21.3 H 1.6-8.6 10 ^3/uL Lymphocytes # (Auto) 0.4 0.4-5.4 10 ^3/uL Monocytes # (Auto) 2.1 H 0-1.3 10 ^3/uL Eosinophils # (Auto) 0 0-0.8 10 ^3/uL Basophils # (Auto) 0.1 0-0.2 10 ^3/uL Nucleated Red Blood Cells 0.0 % Prothrombin Time 11.6 9.3-11.8 sec Prothrombin Time INR 1.11 0.9-1.15 Activated Partial Thromboplast Time 29.3 24.5-34.5 SEC Lactic Acid Level 1.7 0.4-2.0 mmol/L Magnesium Level 2.2 1.6-2.6 mg/dL Total Bilirubin 1.7 H 0.2-1.0 mg/dL Aspartate Amino Transferase (AST) 31 13-40 U/L Alanine Aminotransferase (ALT) 19 7-40 U/L Alkaline Phosphatase 100 46-116 U/L B-Type Natriuretic Peptide 455.98 0-100 pg/mL Total Protein 6.8 5.7-8.2 g/dL Albumin 4.2 3.2-4.8 g/dL Assessment Community acquired pneumonia NSTEMI, likely type 2 secondary to above Paroxysmal atrial fibrillation, stage IIIA, now NSR (on Eliquis/amiodarone at home) Rule out structural heart disease Hypertension HX of CVA CKD stage IIIB Obesity Plan/Recommendation (Dr. Trujillo) We will continue further cardiac evaluation with a transthoracic echocardiogram to evaluate cardiac function. In the meantime, continue Eliquis therapy, antiarrhythmic therapy with amiodarone, and rate control with metoprolol XL. Monitor QTC interval closely. Continue preload and afterload reduction. Obtain COVID-19 and influenza swabs. Monitor ECG changes and notify. ABX therapy per primary care team. Further orders per clinical course. Thank you for allowing us to participate in this patient's care. Please call if you have any questions or concerns. This medical document was created using an electronic medical record system with voice recognition software and computerized dictation system. Although this document has been carefully reviewed, there might still be some phonetic and typographical errors. Occasional wrong-word or ``sound-alike substitutions may have occurred due to the inherent limitations of voice recognition software. These areas are purely typographical due to imperfections of the software programs and do not reflect any compromise in the patient's medical care. Please read the chart carefully and recognize, using context, where these substitutions have occurred. Plan discussed with: Patient, Other NYHA Physical activity limitations: NA Date of Service: Apr 26, 2025 Billing Provider: VIDHI POWELL Cardiology Common Codes: [id number] INP/OBS CARE (High) VIDHI POWELL Apr 26, 2025 09:08
[2025-04-26 10:04] LABS: COVID19 ANTIGEN SOFIA FIA NEGATIVE (NEGATIVE)
[2025-04-26 10:22] LABS: Triglycerides 65 mg/dL (< 150)
[2025-04-26 10:24] LABS: Cholesterol 96 mg/dL (< 200); HDL Cholesterol 60 mg/dL (40-59)
[2025-04-26 11:34] LABS: Urine Protein, UAD Negative (Negative)
[2025-04-26] MEDS: METOPROLOL SUCCINATE XL 50 MG TAB PO SCH (12:32)
--- NOTE | 2025-04-26 13:47 | DVHPN2 ---
Reviewed: Care Plan, H&P, Labs, Medications, Previous Orders, Radiology Changes from previous H/P or p: No Changes Objective Vitals Vital Signs Date Time Temp Pulse Resp B/P (MAP) Pulse Ox O2 Delivery O2 Flow Rate FiO2 04/26/25 12:32 125 109/65 04/26/25 10:48 18 100 04/26/25 10:40 Nasal Cannula* 1 24 04/26/25 05:00 98.2 98.2 Intake/Output Intake and Output 04/26/25 07:00 Intake Total 800 ml Balance 800 ml Intake Oral 0 ml IV Total 800 ml # Voids 4 Medications Current Medications Medications Dose Ordered Sig/Jaun Route Start Time Stop Time Status Last Admin Dose Admin Nitroglycerin 0.4 mg Q5MINP PRN SL 04/26/25 00:00 Morphine Sulfate 2 mg Q30M PRN IV 04/26/25 00:00 Aspirin 162 mg DAILY PO 04/26/25 10:00 04/26/25 08:53 162 MG Atorvastatin Calcium 40 mg HS PO 04/26/25 22:00 Amiodarone HCl 200 mg DAILY PO 04/26/25 10:00 04/26/25 08:53 200 MG Apixaban 2.5 mg BID PO 04/26/25 10:00 04/26/25 08:53 2.5 MG Ceftriaxone Sodium 50 ml @ 100 mls/hr DAILY@09 IV 04/26/25 09:00 04/26/25 08:53 100 MLS/HR Ondansetron HCl 4 mg Q4HP PRN IV 04/26/25 01:15 Acetaminophen 650 mg Q6HP PRN PO 04/26/25 01:15 Albuterol 2.5 mg Q6HPRN PRN NEB 04/26/25 01:15 04/26/25 10:40 2.5 MG Furosemide 20 mg DAILY IV 04/26/25 10:00 Metoprolol Succinate 25 mg DAILY PO 04/26/25 10:00 04/26/25 12:32 25 MG Laboratory Results Laboratory Tests 04/25/25 20:27 04/26/25 02:48 Chemistry Test 04/25/25 20:27 04/26/25 02:48 Albumin 4.2 g/dL (3.2-4.8) Calcium Level 9.5 mg/dL (8.7-10.4) 8.8 mg/dL (8.7-10.4) Magnesium Level 2.2 mg/dL (1.6-2.6) Total Protein 6.8 g/dL (5.7-8.2) Coagulation Test 04/25/25 20:27 Prothrombin Time 11.6 sec (9.3-11.8) Prothrombin Time INR 1.11 (0.9-1.15) Activated Partial Thromboplast Time 29.3 SEC (24.5-34.5) Lipid panel Test 04/26/25 09:52 Cholesterol Level 96 mg/dL (< 200) HDL Cholesterol 60 mg/dL (40-59) H Triglycerides Level 65 mg/dL (< 150) Cardiac Markers Test 04/25/25 20:27 B-Type Natriuretic Peptide 455.98 pg/mL (0-100) LFT Test 04/25/25 20:27 Alanine Aminotransferase (ALT) 19 U/L (7-40) Alkaline Phosphatase 100 U/L (46-116) Aspartate Amino Transferase (AST) 31 U/L (13-40) Total Bilirubin 1.7 mg/dL (0.2-1.0) H HgA1c, TSH Test 04/26/25 09:52 Hemoglobin A1c 5.1 % A1C (<5.7) Thyroid Stimulating Hormone (TSH) 0.96 uIU/mL (0.55-4.78) Urinalysis Test 04/26/25 10:00 Urine Color Colorless (Yellow) Urine Clarity Clear (Clear) Urine pH 5.0 (5.0-9.0) Urine Specific [place] 1.006 (1.001-1.035) Urine Protein Negative (Negative) Urine Ketones Negative (Negative) Urine Blood Negative /uL (Negative) Urine Nitrite Negative (Negative) Urine Bilirubin Negative (Negative) Urine Urobilinogen Normal mg/dL (Negative) Urine Leukocyte Esterase Negative /uL (Negative) Urine RBC None seen /hpf (0 - 3) Urine Microscopic WBC < 1 /HPF (0-3) Urine Squamous Epithelial Cells None seen /hpf (<5) Urine Bacteria None seen /hpf (None Seen) Urine Glucose Normal mg/dL (Normal) Labs and/or images reviewed: Labs reviewed by me, Image(s) reviewed by me Assessment/Plan Assessment/Plan Sepsis secondary Community acquired pneumonia: Rocephin doxycycline NSTEMI, likely type 2 secondary to above: Consult by Cardiology appreciated Paroxysmal atrial fibrillation, stage IIIA, now NSR (on Eliquis/amiodarone at home) continue metoprolol Rule out structural heart disease: Echocardiogram pending Hypertension HX of CVA CKD stage IIIB Obesity Analia test negative Rapid flu test neg Time spent 70 minutes Advanced care planning time 20 mts Patient is full code Plan discussed with: Patient Date of Service: Apr 26, 2025 Billing Provider: MARIANN ROCHA MD Common Visit Codes: [id number] CARE 30-74 MIN MARIANN ROCHA MD Apr 26, 2025 13:47
[2025-04-26] MEDS: ALBUTEROL SULF 2.5 MG/0.5ML(0.5%) NEB SOLN NEB SCH (15:15)
[2025-04-26] MEDS: DOXYCYCLINE 100MG/100ML 100 ML IV SCH (15:44)
[2025-04-26] MEDS: ATORVASTATIN 20 MG TAB PO SCH (21:33)
[2025-04-27] VITALS (18 sets, daily range): BP systolic 99–127; BP diastolic 47–77; PULSE 63–86; RESP 15–20; TEMP 97.6–98.4; O2SAT 92–100
--- NOTE | 2025-04-27 08:02 | DVHPN2 ---
Reviewed: Care Plan, H&P, Labs, Medications, Previous Orders, Radiology Changes from previous H/P or p: No Changes Objective Vitals Vital Signs Date Time Temp Pulse Resp B/P (MAP) Pulse Ox O2 Delivery O2 Flow Rate FiO2 04/27/25 07:30 16 97 Nasal Cannula* 2 28 04/27/25 06:56 78 04/27/25 05:00 97.7 126/58 (80) 97.7 Intake/Output Intake and Output 04/27/25 07:00 Intake Total 1400 ml Output Total 2200 ml Balance -800 ml Intake Oral 1250 ml IV Total 150 ml Output Urine Total 2200 ml Medications Current Medications Medications Dose Ordered Sig/Jaun Route Start Time Stop Time Status Last Admin Dose Admin Nitroglycerin 0.4 mg Q5MINP PRN SL 04/26/25 00:00 Morphine Sulfate 2 mg Q30M PRN IV 04/26/25 00:00 Aspirin 162 mg DAILY PO 04/26/25 10:00 04/26/25 08:53 162 MG Atorvastatin Calcium 40 mg HS PO 04/26/25 22:00 04/26/25 21:33 40 MG Amiodarone HCl 200 mg DAILY PO 04/26/25 10:00 04/26/25 08:53 200 MG Apixaban 2.5 mg BID PO 04/26/25 10:00 04/26/25 21:33 2.5 MG Ceftriaxone Sodium 50 ml @ 100 mls/hr DAILY@09 IV 04/26/25 09:00 04/26/25 08:53 100 MLS/HR Ondansetron HCl 4 mg Q4HP PRN IV 04/26/25 01:15 Acetaminophen 650 mg Q6HP PRN PO 04/26/25 01:15 Albuterol 2.5 mg Q6HPRN PRN NEB 04/26/25 01:15 04/26/25 14:52 2.5 MG Furosemide 20 mg DAILY IV 04/26/25 10:00 Metoprolol Succinate 25 mg DAILY PO 04/26/25 10:00 04/26/25 12:32 25 MG Doxycycline Hyclate 100 ml @ 50 mls/hr Q12H IV 04/26/25 14:00 04/27/25 02:19 50 MLS/HR Albuterol 2.5 mg Q4H NEB 04/26/25 15:15 04/27/25 07:01 2.5 MG Laboratory Results Laboratory Tests 04/25/25 20:27 04/26/25 02:48 Lipid panel Test 04/26/25 09:52 Cholesterol Level 96 mg/dL (< 200) HDL Cholesterol 60 mg/dL (40-59) H Triglycerides Level 65 mg/dL (< 150) HgA1c, TSH Test 04/26/25 09:52 Hemoglobin A1c 5.1 % A1C (<5.7) Thyroid Stimulating Hormone (TSH) 0.96 uIU/mL (0.55-4.78) Urinalysis Test 04/26/25 10:00 Urine Color Colorless (Yellow) Urine Clarity Clear (Clear) Urine pH 5.0 (5.0-9.0) Urine Specific [place] 1.006 (1.001-1.035) Urine Protein Negative (Negative) Urine Ketones Negative (Negative) Urine Blood Negative /uL (Negative) Urine Nitrite Negative (Negative) Urine Bilirubin Negative (Negative) Urine Urobilinogen Normal mg/dL (Negative) Urine Leukocyte Esterase Negative /uL (Negative) Urine RBC None seen /hpf (0 - 3) Urine Microscopic WBC < 1 /HPF (0-3) Urine Squamous Epithelial Cells None seen /hpf (<5) Urine Bacteria None seen /hpf (None Seen) Urine Glucose Normal mg/dL (Normal) Microbiology Microbiology Date/Time Source Procedure Growth Status 04/25/25 20:27 Blood Blood Culture - Preliminary NO GROWTH AFTER 24 HOURS OF INCUBATION. Resulted Labs and/or images reviewed: Labs reviewed by me, Image(s) reviewed by me Assessment/Plan Assessment/Plan Sepsis secondary Community acquired pneumonia: Rocephin doxycycline NSTEMI, likely type 2 secondary to above: Consult by Cardiology appreciated Paroxysmal atrial fibrillation, stage IIIA, now NSR (on Eliquis/amiodarone at home) continue metoprolol Rule out structural heart disease: Echocardiogram pending Hypertension HX of CVA CKD stage IIIB Obesity Analia test negative Rapid flu test neg Time spent 50 minutes Advanced care planning time 20 mts Patient is full code PCP Lasha and Lasha Plan discussed with: Patient My Orders Orders - MARIANN ROCHA MD Procedure Category Date Status Time Doxycycline PHA 04/26/25 In Process 100mg/100ml 14:00 Albuterol Medneb PHA 04/26/25 In Process (Ventolin Medneb) 15:15 * Wound Consult CONS 04/26/25 Transmitted Date of Service: Apr 27, 2025 Billing Provider: MARIANN ROCHA MD Common Visit Codes: [id number] INP/OBS CARE(HIGH) MARIANN ROCHA MD Apr 27, 2025 08:02
[2025-04-27] MEDS: POTASSIUM EFFERVESENT TAB 25 MEQ PO ONE (10:12)
--- NOTE | 2025-04-27 10:51 | ECG ---
[facility] Test Date: 2025-04-26 Test Time: 13:00:38 Pat Name: WILLIAM FRANCO Department: Respiratoy Room: 0215T B Gender: M Windows 7 Deployment Lead: CRISTINA : 1940 Requested By: VIDHI POWELL Order Number: [id number] Reading MD: Valentin Trujillo Measurements Intervals [place] Rate: 121 P: 0 [place]: 0 QRS: -130 QRSD: 171 T: 113 QT: 367 QTc: 521 Interpretive Statements Atrial fibrillation IVCD, consider atypical RBBB Baseline wander in lead(s) V5 Electronically Signed On 04-28-2025 17:35:54 PDT by Valentin Trujillo Please click the below link to view image of tracing.
--- NOTE | 2025-04-27 14:38 | DVHPN2 ---
Consult Progress Note Date Seen: Apr 27, 2025 Subjective Review of Systems: CVS:Normal, RESPIRATORY:Normal, NEURO:Normal Objective vital signs Vital Sign Date Time Temp Pulse Resp B/P (MAP) Pulse Ox O2 Delivery O2 Flow Rate FiO2 04/27/25 12:50 97.8 86 15 115/47 (69) 100 97.8 04/27/25 09:55 Nasal Cannula* 2 28 Total Intake and Output 04/26/25 04/26/25 04/27/25 15:00 23:00 07:00 Intake Total 50 ml 700 ml 650 ml Output Total 1800 ml 400 ml Balance 50 ml -1100 ml 250 ml medications Current Medications Medications Dose Ordered Sig/Jaun Route Start Time Stop Time Status Last Admin Dose Admin Nitroglycerin 0.4 mg Q5MINP PRN SL 04/26/25 00:00 Morphine Sulfate 2 mg Q30M PRN IV 04/26/25 00:00 Aspirin 162 mg DAILY PO 04/26/25 10:00 04/27/25 08:56 162 MG Atorvastatin Calcium 40 mg HS PO 04/26/25 22:00 04/26/25 21:33 40 MG Amiodarone HCl 200 mg DAILY PO 04/26/25 10:00 04/27/25 08:55 200 MG Apixaban 2.5 mg BID PO 04/26/25 10:00 04/27/25 08:56 2.5 MG Ceftriaxone Sodium 50 ml @ 100 mls/hr DAILY@09 IV 04/26/25 09:00 04/27/25 08:56 100 MLS/HR Ondansetron HCl 4 mg Q4HP PRN IV 04/26/25 01:15 Acetaminophen 650 mg Q6HP PRN PO 04/26/25 01:15 Albuterol 2.5 mg Q6HPRN PRN NEB 04/26/25 01:15 04/26/25 14:52 2.5 MG Furosemide 20 mg DAILY IV 04/26/25 10:00 04/27/25 08:57 20 MG Metoprolol Succinate 25 mg DAILY PO 04/26/25 10:00 04/27/25 08:56 25 MG Doxycycline Hyclate 100 ml @ 50 mls/hr Q12H IV 04/26/25 14:00 04/27/25 13:26 50 MLS/HR Albuterol 2.5 mg Q4H NEB 04/26/25 15:15 04/27/25 09:54 2.5 MG Examination: LUNGS:Abnormal (Expiratory rhonchi), CVS:Normal (NSR), NEURO:Normal laboratory and microbiology Laboratory Tests 04/26/25 02:48 04/25/25 20:27 Test 04/26/25 02:48 Range/Units Serum Glucose 121 H 74-106 mg/dL Problem List/Assessment/Plan Problem List/Assessment/Plan Community acquired pneumonia NSTEMI, likely type 2 secondary to above Paroxysmal atrial fibrillation, stage IIIA, now NSR (on Eliquis/amiodarone at home) Rule out structural heart disease Hypertension HX of CVA CKD stage IIIB Obesity Plan/Recommendation (Dr. Trujillo) We will continue further cardiac evaluation with a transthoracic echocardiogram to evaluate cardiac function. In the meantime, continue Eliquis therapy, antiarrhythmic therapy with amiodarone, and rate control with metoprolol XL. Monitor QTC interval closely. Continue preload and afterload reduction. Monitor ECG changes and notify. ABX therapy per primary care team. In the setting of an unremarkable TTE, there is no further cardiac work-up at this time. Thank you for allowing us to participate in this patient's care. Please call if you have any questions or concerns. This medical document was created using an electronic medical record system with voice recognition software and computerized dictation system. Although this document has been carefully reviewed, there might still be some phonetic and typographical errors. Occasional wrong-word or ``sound-alike substitutions may have occurred due to the inherent limitations of voice recognition software. These areas are purely typographical due to imperfections of the software programs and do not reflect any compromise in the patient's medical care. Please read the chart carefully and recognize, using context, where these substitutions have occurred. Plan discussed with: Patient, Other Date of Service: Apr 27, 2025 Billing Provider: VIDHI POWELL Cardiology Common Codes: [id number] [facility] VIDHI POWELL Apr 27, 2025 14:38
[2025-04-28] VITALS (20 sets, daily range): BP systolic 121–141; BP diastolic 47–65; PULSE 65–80; RESP 12–20; TEMP 97.6–98.1; O2SAT 90–99
[2025-04-28] MEDS: guaiFENesin-DM 100/10mg/5ml SYR PO PRN (03:22)
--- NOTE | 2025-04-28 05:52 | DVH ---
CHEST RADIOGRAPH Indication: PNA Technique: Single frontal view of the chest was obtained COMPARISON: XY CHEST XRAY 1 VIEW on DOS: 04/25/25, XY CHEST PORTABLE on DOS: 08/01/24, XY CHEST PORTAB LE on DOS: 08/01/24, XY CHEST XRAY 1 VIEW on DOS: 07/30/24 FINDINGS: Lines and Tubes: None Lungs: Clear Pleura: No effusion. No pneumothorax. Cardiomediastinal contours: Unremarkable Bones: Unremarkable IMPRESSION: 1. No acute disease.
[2025-04-28 05:59] LABS: Hematocrit 42.5 % (41.0-53.0); Hemoglobin 14.3 g/dL (13.5-17.5); Mean Corpuscular Hemoglobin 31.8 pg (28.0-32.0); Mean Corpuscular Volume 94.1 fL (80.0-100.0); Nucleated Red Blood Cells % 0.0 %
[2025-04-28 06:06] LABS: Alanine Aminotransferase 28 U/L (7-40); Albumin 3.8 g/dL (3.2-4.8); Alkaline Phosphatase 82 U/L (46-116); Anion Gap 12 (5-15); BUN/Creatinine Ratio 15.6 (10.0-20.0); Calcium 9.2 mg/dL (8.7-10.4); Carbon Dioxide 27 mmol/L (20-31); Chloride 105 mmol/L (98-107); Glucose 100 mg/dL (74-106); Sodium 144 mmol/L (136-145); Total Protein 6.3 g/dL (5.7-8.2)
[2025-04-28 06:07] LABS: Bilirubin, Total 1.0 mg/dL (0.2-1.0)
[2025-04-28 06:14] LABS: Blood Urea Nitrogen 43 mg/dL (9-23); Potassium 2.9 mmol/L (3.5-5.1)
--- NOTE | 2025-04-28 09:43 | DVHPN2 ---
Reviewed: Care Plan, H&P, Labs, Medications, Previous Orders, Radiology Changes from previous H/P or p: No Changes Objective Vitals Vital Signs Date Time Temp Pulse Resp B/P (MAP) Pulse Ox O2 Delivery O2 Flow Rate FiO2 04/28/25 09:00 97.6 75 20 133/47 (75) 96 97.6 04/28/25 06:10 Room Air* 0 21 Intake/Output Intake and Output 04/28/25 07:00 Intake Total 1500 ml Output Total 575 ml Balance 925 ml Intake Oral 1350 ml IV Total 150 ml Output Urine Total 575 ml # Voids 5 # Bowel Movements 1 Medications Current Medications Medications Dose Ordered Sig/Jaun Route Start Time Stop Time Status Last Admin Dose Admin Nitroglycerin 0.4 mg Q5MINP PRN SL 04/26/25 00:00 Morphine Sulfate 2 mg Q30M PRN IV 04/26/25 00:00 Aspirin 162 mg DAILY PO 04/26/25 10:00 04/27/25 08:56 162 MG Atorvastatin Calcium 40 mg HS PO 04/26/25 22:00 04/27/25 21:10 40 MG Amiodarone HCl 200 mg DAILY PO 04/26/25 10:00 04/27/25 08:55 200 MG Apixaban 2.5 mg BID PO 04/26/25 10:00 04/27/25 21:10 2.5 MG Ceftriaxone Sodium 50 ml @ 100 mls/hr DAILY@09 IV 04/26/25 09:00 04/27/25 08:56 100 MLS/HR Ondansetron HCl 4 mg Q4HP PRN IV 04/26/25 01:15 Acetaminophen 650 mg Q6HP PRN PO 04/26/25 01:15 Albuterol 2.5 mg Q6HPRN PRN NEB 04/26/25 01:15 04/26/25 14:52 2.5 MG Furosemide 20 mg DAILY IV 04/26/25 10:00 04/27/25 08:57 20 MG Metoprolol Succinate 25 mg DAILY PO 04/26/25 10:00 04/27/25 08:56 25 MG Doxycycline Hyclate 100 ml @ 50 mls/hr Q12H IV 04/26/25 14:00 04/28/25 01:25 50 MLS/HR Albuterol 2.5 mg Q4H NEB 04/26/25 15:15 04/28/25 06:10 2.5 MG Guaifenesin/ Dextromethorphan 10 ml Q6HPRN PRN PO 04/28/25 03:15 04/28/25 03:22 10 ML Laboratory Results Laboratory Tests 04/28/25 04:48 Chemistry Test 04/28/25 04:48 Albumin 3.8 g/dL (3.2-4.8) Calcium Level 9.2 mg/dL (8.7-10.4) Total Protein 6.3 g/dL (5.7-8.2) LFT Test 04/28/25 04:48 Alanine Aminotransferase (ALT) 28 U/L (7-40) Alkaline Phosphatase 82 U/L (46-116) Aspartate Amino Transferase (AST) 52 U/L (13-40) H Total Bilirubin 1.0 mg/dL (0.2-1.0) Urinalysis Test 04/26/25 10:00 Urine Color Colorless (Yellow) Urine Clarity Clear (Clear) Urine pH 5.0 (5.0-9.0) Urine Specific [place] 1.006 (1.001-1.035) Urine Protein Negative (Negative) Urine Ketones Negative (Negative) Urine Blood Negative /uL (Negative) Urine Nitrite Negative (Negative) Urine Bilirubin Negative (Negative) Urine Urobilinogen Normal mg/dL (Negative) Urine Leukocyte Esterase Negative /uL (Negative) Urine RBC None seen /hpf (0 - 3) Urine Microscopic WBC < 1 /HPF (0-3) Urine Squamous Epithelial Cells None seen /hpf (<5) Urine Bacteria None seen /hpf (None Seen) Urine Glucose Normal mg/dL (Normal) Microbiology Microbiology Date/Time Source Procedure Growth Status 04/25/25 20:27 Blood Blood Culture - Preliminary NO GROWTH AFTER 48 HOURS OF INCUBATION. Resulted Labs and/or images reviewed: Labs reviewed by me, Image(s) reviewed by me Assessment/Plan Assessment/Plan Sepsis secondary Community acquired pneumonia: Rocephin doxycycline NSTEMI, likely type 2 secondary to above: Consult by Cardiology appreciated, awaiting echocardiogram result Paroxysmal atrial fibrillation, stage IIIA, now NSR (on Eliquis/amiodarone at home) continue metoprolol Rule out structural heart disease: Echocardiogram pending Hypertension HX of CVA CKD stage IIIB Obesity Analia test negative Rapid flu test neg Time spent 50 minutes Advanced care planning time 20 mts Patient is full code PCP João Plan discussed with: Patient Date of Service: Apr 28, 2025 Billing Provider: MARIANN ROCHA MD Common Visit Codes: [id number] INP/OBS CARE(HIGH) MARIANN ROCHA MD Apr 28, 2025 09:43
[2025-04-28] MEDS: POTASSIUM EFFERVESENT TAB 25 MEQ PO ONE (11:25)
--- NOTE | 2025-04-28 14:22 | DVHSR ---
APPROVED REPORT EXAM: Two-dimensional and M-mode echocardiogram with Doppler and color Doppler. Blood Pressure: 114/69 mmHg INDICATION EF RISK FACTORS Obesity: Height: 6'2, Weight: 280 DIMENSIONS LVDd4.7 (3.8-5.7cm)LA (2D)4.4 (1.9-4.0cm)Aortic Root3.5 (2.0-3.7cm) LVDs3.5 (2.5-4.0cm)LA (MM) (1.9-4.0cm)Aortic Cusp Exc0.7 (1.5-2.0cm) EF (%) 50.0 (55-70%)Rt. Atrium3.6 (1.9-4.0cm)Asc. Aorta cm IVSd1.1 (0.7-1.1cm)RV (D)3.6 (1.8-2.4cm) PWd1.3 (0.7-1.1cm) Mitral Valve MitralMitral Stenosis E wavem/sMV Mean GR.7mmHg A wavem/sMV Peak GR.16mmHg E/A ratio0.02D MVAcm2 Aortic Valve Aortic ValveAortic Stenosis V11.21m/[place] Mean GR.39mmHg V23.78m/[place] Peak GR.57mmHg LVOT Diameter2.2 (1.8-2.4cm)Doppler AVA1.22cm2 AI P 1/2 [place]678.97ms Pulmonic Valve V21.08m/s Other Information Technically limited study due to body habitus.patient position. Conclusion Undetermined rhythm. Tachycardia. Left atrial enlargement with concentric LVH. Mild dilation of the sinuses of Valsalva. Aortic sclerosis without stenosis. Left ventricular function appears borderline at 50% with mild septal and anterior wall hypokinesis. Mild TR. No pericardial effusion masses or vegetations.
[2025-04-29] VITALS (12 sets, daily range): BP systolic 131–138; BP diastolic 53–57; PULSE 61–78; RESP 16–24; TEMP 36.6; O2SAT 93–100
[2025-04-29 05:44] LABS: Hematocrit 40.7 % (41.0-53.0); Hemoglobin 13.6 g/dL (13.5-17.5); Mean Corpuscular Hemoglobin 32.0 pg (28.0-32.0); Mean Corpuscular Volume 95.8 fL (80.0-100.0); Nucleated Red Blood Cells % 0.1 %
[2025-04-29 06:03] LABS: Alanine Aminotransferase 31 U/L (7-40); Albumin 3.7 g/dL (3.2-4.8); Alkaline Phosphatase 79 U/L (46-116); Anion Gap 12 (5-15); BUN/Creatinine Ratio 14.6 (10.0-20.0); Calcium 9.2 mg/dL (8.7-10.4); Carbon Dioxide 24 mmol/L (20-31); Chloride 104 mmol/L (98-107); Glucose 95 mg/dL (74-106); Sodium 140 mmol/L (136-145); Total Protein 6.1 g/dL (5.7-8.2)
[2025-04-29 06:04] LABS: Bilirubin, Total 1.1 mg/dL (0.2-1.0)
[2025-04-29 06:25] LABS: Blood Urea Nitrogen 37 mg/dL (9-23); Potassium 3.3 mmol/L (3.5-5.1)
--- NOTE | 2025-04-29 09:42 | DVHPN2 ---
Reviewed: Care Plan, H&P, Labs, Medications, Previous Orders, Radiology Changes from previous H/P or p: No Changes Objective Vitals Vital Signs Date Time Temp Pulse Resp B/P (MAP) Pulse Ox O2 Delivery O2 Flow Rate FiO2 04/29/25 09:27 61 131/53 04/29/25 09:00 97.8 18 100 97.8 04/29/25 06:35 Room Air 0.0 04/29/25 06:35 21 Intake/Output Intake and Output 04/29/25 07:00 Intake Total 1030 ml Balance 1030 ml Intake Oral 780 ml IV Total 250 ml # Voids 7 # Bowel Movements 1 Medications Current Medications Medications Dose Ordered Sig/Jaun Route Start Time Stop Time Status Last Admin Dose Admin Nitroglycerin 0.4 mg Q5MINP PRN SL 04/26/25 00:00 Morphine Sulfate 2 mg Q30M PRN IV 04/26/25 00:00 Aspirin 162 mg DAILY PO 04/26/25 10:00 04/29/25 09:26 162 MG Atorvastatin Calcium 40 mg HS PO 04/26/25 22:00 04/28/25 21:26 40 MG Amiodarone HCl 200 mg DAILY PO 04/26/25 10:00 04/29/25 09:25 200 MG Apixaban 2.5 mg BID PO 04/26/25 10:00 04/29/25 09:26 2.5 MG Ceftriaxone Sodium 50 ml @ 100 mls/hr DAILY@09 IV 04/26/25 09:00 04/29/25 09:26 100 MLS/HR Ondansetron HCl 4 mg Q4HP PRN IV 04/26/25 01:15 Acetaminophen 650 mg Q6HP PRN PO 04/26/25 01:15 Albuterol 2.5 mg Q6HPRN PRN NEB 04/26/25 01:15 04/26/25 14:52 2.5 MG Furosemide 20 mg DAILY IV 04/26/25 10:00 04/29/25 09:26 20 MG Metoprolol Succinate 25 mg DAILY PO 04/26/25 10:00 04/29/25 09:27 25 MG Doxycycline Hyclate 100 ml @ 50 mls/hr Q12H IV 04/26/25 14:00 04/29/25 01:40 50 MLS/HR Albuterol 2.5 mg Q4H NEB 04/26/25 15:15 04/29/25 06:35 2.5 MG Guaifenesin/ Dextromethorphan 10 ml Q6HPRN PRN PO 04/28/25 03:15 04/28/25 14:24 10 ML Laboratory Results Laboratory Tests 04/29/25 04:50 Chemistry Test 04/29/25 04:50 Albumin 3.7 g/dL (3.2-4.8) Calcium Level 9.2 mg/dL (8.7-10.4) Total Protein 6.1 g/dL (5.7-8.2) LFT Test 04/29/25 04:50 Alanine Aminotransferase (ALT) 31 U/L (7-40) Alkaline Phosphatase 79 U/L (46-116) Aspartate Amino Transferase (AST) 48 U/L (13-40) H Total Bilirubin 1.1 mg/dL (0.2-1.0) H Urinalysis Test 04/26/25 10:00 Urine Color Colorless (Yellow) Urine Clarity Clear (Clear) Urine pH 5.0 (5.0-9.0) Urine Specific [place] 1.006 (1.001-1.035) Urine Protein Negative (Negative) Urine Ketones Negative (Negative) Urine Blood Negative /uL (Negative) Urine Nitrite Negative (Negative) Urine Bilirubin Negative (Negative) Urine Urobilinogen Normal mg/dL (Negative) Urine Leukocyte Esterase Negative /uL (Negative) Urine RBC None seen /hpf (0 - 3) Urine Microscopic WBC < 1 /HPF (0-3) Urine Squamous Epithelial Cells None seen /hpf (<5) Urine Bacteria None seen /hpf (None Seen) Urine Glucose Normal mg/dL (Normal) Microbiology Microbiology Date/Time Source Procedure Growth Status 04/25/25 20:27 Blood Blood Culture - Preliminary NO GROWTH AFTER 72 HOURS OF INCUBATION. Resulted Labs and/or images reviewed: Labs reviewed by me, Image(s) reviewed by me Assessment/Plan Assessment/Plan Sepsis secondary Community acquired pneumonia: Rocephin doxycycline NSTEMI, likely type 2 secondary to above: Consult by Cardiology appreciated, echo 60 percent ejection fraction Paroxysmal atrial fibrillation, stage IIIA, now NSR (on Eliquis/amiodarone at home) continue metoprolol Rule out structural heart disease: Echocardiogram pending Hypertension HX of CVA CKD stage IIIB Obesity Analia test negative Rapid flu test neg Time spent 50 minutes Advanced care planning time 20 mts Patient is full code PCP João Patient feels better and requesting to be discharged home today Plan discussed with: Patient Date of Service: Apr 29, 2025 Billing Provider: MARIANN ROCHA MD Common Visit Codes: [id number] INP/OBS CARE(HIGH) MARIANN ROCHA MD Apr 29, 2025 09:42
[2025-04-29] MEDS ORDERED: DOXY100C79 PO (09:45)
[2025-04-29] MEDS ORDERED: POTA-36 PO (09:45)
[2025-04-29] MEDS ORDERED: FURO1TAB31 PO (09:45)
--- NOTE | 2025-04-29 09:48 | DVHDS2 ---
Discharge Summary Date of Admission Apr 26, 2025 at 00:00 Date of Discharge: Apr 29, 2025 Admitting Diagnosis Shortness of breath Wounds: None Labs/Diagnostic Data: Laboratory Results Test 04/29/25 04:50 04/26/25 10:00 04/26/25 09:52 04/26/25 09:30 White Blood Count 8.1 10^3/uL (4.4-10.8) Red Blood Count 4.25 10^6/uL (4.5-5.90) Hemoglobin 13.6 g/dL (13.5-17.5) Hematocrit 40.7 % (41.0-53.0) Mean Corpuscular Volume 95.8 fL (80.0-100.0) Mean Corpuscular Hemoglobin 32.0 pg (28.0-32.0) Mean Corpuscular Hemoglobin Concent 33.4 g/dL (32.0-36.0) Red Cell Distribution Width 13.7 % (11.8-14.3) Platelet Count 151 10^3/uL (140-450) Mean Platelet Volume 10.3 fL (6.9-10.8) Neutrophils (%) (Auto) 74.2 % (37.0-80.0) Lymphocytes (%) (Auto) 10.6 % (10.0-50.0) Monocytes (%) (Auto) 12.0 % (0.0-12.0) Eosinophils (%) (Auto) 2.6 % (0.0-7.0) Basophils (%) (Auto) 0.6 % (0.0-2.0) Neutrophils # (Auto) 6.0 10 ^3/uL (1.6-8.6) Lymphocytes # (Auto) 0.9 10 ^3/uL (0.4-5.4) Monocytes # (Auto) 1.0 10 ^3/uL (0-1.3) Eosinophils # (Auto) 0.2 10 ^3/uL (0-0.8) Basophils # (Auto) 0 10 ^3/uL (0-0.2) Nucleated Red Blood Cells 0.1 % Sodium Level 140 mmol/L (136-145) Potassium Level 3.3 mmol/L (3.5-5.1) Chloride Level 104 mmol/L (98-107) Carbon Dioxide Level 24 mmol/L (20-31) Anion Gap 12 (5-15) Blood Urea Nitrogen 37 mg/dL (9-23) Creatinine 2.54 mg/dL (0.700-1.30) Glomerular Filtration Rate Calc 24 mL/min (>90) BUN/Creatinine Ratio 14.6 (10.0-20.0) Serum Glucose 95 mg/dL (74-106) Calcium Level 9.2 mg/dL (8.7-10.4) Total Bilirubin 1.1 mg/dL (0.2-1.0) Aspartate Amino Transferase (AST) 48 U/L (13-40) Alanine Aminotransferase (ALT) 31 U/L (7-40) Alkaline Phosphatase 79 U/L (46-116) Total Protein 6.1 g/dL (5.7-8.2) Albumin 3.7 g/dL (3.2-4.8) Urine Color Colorless (Yellow) Urine Clarity Clear (Clear) Urine pH 5.0 (5.0-9.0) Urine Specific [place] 1.006 (1.001-1.035) Urine Protein Negative (Negative) Urine Ketones Negative (Negative) Urine Blood Negative /uL (Negative) Urine Nitrite Negative (Negative) Urine Bilirubin Negative (Negative) Urine Urobilinogen Normal mg/dL (Negative) Urine Leukocyte Esterase Negative /uL (Negative) Urine RBC None seen /hpf (0 - 3) Urine Microscopic WBC < 1 /HPF (0-3) Urine Squamous Epithelial Cells None seen /hpf (<5) Urine Bacteria None seen /hpf (None Seen) Urine Glucose Normal mg/dL (Normal) Hemoglobin A1c 5.1 % A1C (<5.7) Troponin I High Sensitivity 177 ng/L (</=54) Triglycerides Level 65 mg/dL (< 150) Cholesterol Level 96 mg/dL (< 200) LDL Cholesterol 20 mg/dL (< 100) HDL Cholesterol 60 mg/dL (40-59) Thyroid Stimulating Hormone (TSH) 0.96 uIU/mL (0.55-4.78) Influenza Type A Antigen Negative (Negative) Influenza Type B Antigen Negative (Negative) SARS-CoV-2 Antigen (Rapid) Negative (NEGATIVE) Test 04/25/25 20:27 Prothrombin Time 11.6 sec (9.3-11.8) Prothrombin Time INR 1.11 (0.9-1.15) Activated Partial Thromboplast Time 29.3 SEC (24.5-34.5) Lactic Acid Level 1.7 mmol/L (0.4-2.0) Magnesium Level 2.2 mg/dL (1.6-2.6) B-Type Natriuretic Peptide 455.98 pg/mL (0-100) Other Laboratory Tests 04/29/25 04:50 Brief Hx & Hospital Course: 84-year-old male with a history of hypertension CVA stage III CKD obesity came in complaining of shortness of breaths. Found to have paroxysmal AFib started on Eliquis and amiodarone which has been taking at home and continued on metoprolol. Found to have community-acquired pneumonia treated with Rocephin and doxycycline echo 60 percent ejection fraction Analia test negative flu test negative at the time of discharge vital signs are stable he is on room air and wants to go home. Cleared for discharge by Cardiology. Reviewed home medications. He will continue Eliquis and amiodarone. Prescription for doxycycline for pneumonia and Lasix and potassium transmitted to the pharmacy. He will follow up with the his new PCP Dr. Colby and his physical instructor Dr. Hooks Consults/Reason for consult Cardiology Dr. Trujillo Operations or Procedures Echocardiogram Condition at Discharge: Fair Final Diagnosis/Problems List Sepsis secondary Community acquired pneumonia: Rocephin doxycycline NSTEMI, likely type 2 secondary to above: Consult by Cardiology appreciated, echo 60 percent ejection fraction Paroxysmal atrial fibrillation, stage IIIA, now NSR (on Eliquis/amiodarone at home) continue metoprolol Rule out structural heart disease: Echocardiogram pending Hypertension HX of CVA CKD stage IIIB Obesity Analia test negative Rapid flu test neg Discharge Disposition: Home Discharge Instruct/Medications Diet: Cardiac 2g Na,low cholest Activity: Light activity Follow Up/Referral: Follow up with your new primary Dr Dr. Colby Follow up with the Cardiology Dr. Espinoza Resume all previous home medications including Eliquis and amiodarone Medications: Doxycycline Lasix Transmitted to [facility] Scheduled Amiodarone HCl (Amiodarone HCl), 1 TAB PO DAILY, (Reported) Apixaban Base (Eliquis), 1 TAB PO BID, (Reported) Ascorbic Acid (Vitamin C Tablet), 1 TAB PO DAILY, (Reported) Aspirin (Aspir-Low), 81 MG PO DAILY, (Reported) Atorvastatin Calcium (Atorvastatin Calcium), 1 TAB PO DAILY, (Reported) Chlorthalidone (Chlorthalidone), 25 MG PO DAILY, (Reported) Cholecalciferol (Vitamin D3), 100 MG XX DAILY, (Reported) Dexamethasone (Decadron), 4 TAB PO DAILY Doxycycline (Monohydrate) (Doxycycline), 100 MG PO BID Doxycycline Hyclate (Doxycycline Hyclate), 1 TAB PO BID Furosemide (Lasix), 40 MG PO DAILY Hydralazine Hcl (Hydralazine Hcl), 100 MG PO DAILY, (Reported) Potassium Chloride (Potassium Chloride Cr), 1 TAB PO DAILY Zinc Sulfate (Zinc Sulfate), 50 MG PO DAILY, (Reported) 39 (Time taken for discharge summary 39 minutes) Discharge Statement: "Patient was advised to return to the ER or call 911 if any headaches, dizziness, shortness of breath, chest pain, abdominal pain, bleeding, fevers, or worsening of medical condition. Patient was counseled about treatment plan, medications, possible side effects, patientverbalized understanding. All questions were answered to the best of my ability. This discharge took greater then 30 minutes in planning, reviewing documentation, counseling the patient, and discussing with other team members." ASSESSMENT ASSESSMENT Hospital Course Uneventful Assessment Sepsis secondary Community acquired pneumonia: Rocephin doxycycline NSTEMI, likely type 2 secondary to above: Consult by Cardiology appreciated, echo 60 percent ejection fraction Paroxysmal atrial fibrillation, stage IIIA, now NSR (on Eliquis/amiodarone at home) continue metoprolol Rule out structural heart disease: Echocardiogram pending Hypertension HX of CVA CKD stage IIIB Obesity Analia test negative Rapid flu test neg Date of Service: Apr 29, 2025 Billing Provider: MARIANN ROCHA MD Common Visit Codes: [id number] DISCH DAY >30min MARIANN ROCHA MD Apr 29, 2025 09:48
[2025-04-29] MEDS: POTASSIUM EFFERVESENT TAB 25 MEQ PO ONE (11:13)
== END 2025-04-29 13:10 | disposition home or self-care (01) | DRG 871 ==
LOC: EDBD 19:57 → ER 19:57 → OVERFLOW 20:00 → UNDODEPER 04-26 01:11 → TELE-CENTR 04-26 01:50
PROVIDERS: ADMIT Family Medicine; ATTEND Family Medicine
DX: A41.59 Other Gram-negative sepsis (principal); I21.A1 Myocardial infarction type 2; J15.69 Pneumonia due to other Gram-negative bacteria; J15.9 Unspecified bacterial pneumonia; N17.0 Acute kidney failure with tubular necrosis; I50.33 Acute on chronic diastolic (congestive) heart failure; I13.0 Hypertensive heart and chronic kidney disease with heart failure and stage 1 through stage 4 chronic kidney disease, or unspecified chronic kidney disease; E66.9 Obesity, unspecified; I48.0 Paroxysmal atrial fibrillation; Z20.822 Contact with and (suspected) exposure to COVID-19; N18.32 Chronic kidney disease, stage 3b; J98.4 Other disorders of lung; N40.0 Benign prostatic hyperplasia without lower urinary tract symptoms; Z79.01 Long term (current) use of anticoagulants; Z86.73 Personal history of transient ischemic attack (TIA), and cerebral infarction without residual deficits; Z68.34 Body mass index [BMI] 34.0-34.9, adult; Z80.3 Family history of malignant neoplasm of breast
CPT/HCPCS: 36415; 71045; 72170; 80048; 80053; 80061; 81001; 83036; 84132; 84443; 84484; 85025; 87426; 87804; 93005; 93306; 94640; 96365; G0378